=== PATIENT | male | born 1955 | race Two or more races ===

== ENCOUNTER 2017-10-22 13:47 | Emergency (ER) | END 2017-10-22 14:58 | disposition home or self-care (01) ==

== ENCOUNTER 2018-10-11 21:10 | Inpatient (IN) | payer MEDICARE, BC ==
[~2018-10-11] VITALS: Ht 180.3 cm; Wt 88.7 kg
[~2018-10-11 21:10] MED LIST: AMIO200T4 PO; APIX5TAB PO; ASPI-781 PO; ATOR40TA68 PO; BUPR150T6 PO; CARV6.2579 PO; CHOL100062 PO; CLOP75TA19 PO; FAMO20TA18 PO; QUIN20TA23 PO; SPIR25TA PO
[2018-10-11] MEDS ORDERED: CARV12.579 PO (21:59)
[2018-10-11] MEDS ORDERED: CLOP75TA19 PO (21:59)
[2018-10-11] MEDS ORDERED: SACU1TAB4 PO (21:59)
[2018-10-11] MEDS ORDERED: LEVO50TA7 PO (22:00)
[2018-10-11] MEDS ORDERED: APIX5TAB PO (22:00)
[2018-10-11] MEDS ORDERED: ATOR40TA68 PO (22:00)
[2018-10-11] MEDS ORDERED: SPIR25TA PO (22:01)
[2018-10-11] MEDS ORDERED: AMIO200T4 PO (22:01)
[2018-10-11] MEDS ORDERED: OMEP40CA6 PO (22:02)
[2018-10-11] MEDS ORDERED: FAMO20TA18 PO (22:02)
[2018-10-11] MEDS ORDERED: SOD CHLORIDE 0.9% 500 ML IV STA (22:03)
[2018-10-11] MEDS ORDERED: ONDANSETRON 4 MG INJ IV STA (22:03)
--- NOTE | 2018-10-11 22:37 | ERD ---
ER Documentation Chief Complaint Chief Complaint witnessed apneaic episode w/ colorchange- resolved upon ems arival ARELIS This is a 63-year-old male with a history of hypertension, CAD, CHF with a pacemaker presents to the ER for evaluation of chest pain and syncope. The patient's history is obtained from the patient and his . The patient's states that the patient has been feeling sick over the past few days and today he was feeling very weak and he fainted. The patient did not hit his head because of caught him. His states that he started to turn blue and she called 911. She states that the patient was unconscious for approximately 60 seconds. The patient states that he was feeling weak and felt like he was going to faint before this happened. He states that he is having some chest pain and states that it is a light pain in the center of his chest ROS All systems reviewed and are negative except as per history of present illness. Medications Home Meds Reported Medications Famotidine* (Famotidine*) 20 Mg Tablet, 20 MG PO BID, #60 TAB 10/11/18 Omeprazole* (Omeprazole*) 40 Mg Capsule.dr, 40 MG PO DAILY, #30 CAP 10/11/18 Spironolactone* (Aldactone*) 25 Mg Tablet, 25 MG PO DAILY, #30 TAB 10/11/18 Amiodarone Hcl* (Amiodarone Hcl*) 200 Mg Tablet, 200 MG PO DAILY, #30 TAB 10/11/18 Apixaban* (Eliquis*) 5 Mg Tablet, 5 MG PO BID, TAB 10/11/18 Atorvastatin* (Atorvastatin*) 40 Mg Tablet, 40 MG PO QHS, #30 TAB 10/11/18 Levothyroxine Sodium* (Levothyroxine Sodium*) 50 Mcg Tablet, 50 MCG PO BEFORE BREAKFAST, #30 TAB 10/11/18 Clopidogrel Bisulfate* (Clopidogrel Bisulfate*) 75 Mg Tablet, 75 MG PO DAILY, #30 TAB 10/11/18 Carvedilol* (Carvedilol*) 12.5 Mg Tablet, 12.5 MG PO BID, #60 TAB 10/11/18 Sacubitril/Valsartan (Entresto 97 mg-103 mg Tablet) 1 Each Tablet, 1 EACH PO BID, TAB 10/11/18 Discontinued Reported Medications Spironolactone* (Aldactone*) 25 Mg Tablet, 25 MG PO DAILY, #30 TAB 06/16/16 Amiodarone Hcl* (Amiodarone Hcl*) 200 Mg Tablet, 200 MG PO DAILY, #30 TAB 06/16/16 Atorvastatin* (Atorvastatin*) 40 Mg Tablet, 40 MG PO QHS, #30 TAB 06/16/16 Quinapril Hcl (Quinapril Hcl) 20 Mg Tablet, 20 MG PO DAILY, #30 TAB 06/16/16 Clopidogrel Bisulfate* (Clopidogrel Bisulfate*) 75 Mg Tablet, 75 MG PO DAILY, #30 TAB 06/16/16 Bupropion Hcl* (Bupropion XL*) 150 Mg Tab.er.24h, 150 MG PO BID, TAB.SA 06/16/16 Apixaban* (Eliquis*) 5 Mg Tablet, 5 MG PO BID, TAB 06/16/16 Aspirin* (Ecotrin*) 325 Mg Tablet.dr, 325 MG PO DAILY, TAB 06/16/16 Famotidine* (Famotidine*) 20 Mg Tablet, 20 MG PO BID, #60 TAB 06/16/16 Cholecalciferol* (Vitamin D3*) 1,000 Unit Tablet, 1000 UNIT PO DAILY, TAB 06/16/16 Discontinued Scripts Carvedilol* (Carvedilol*) 6.25 Mg Tablet, 6.25 MG PO BID for 30 Days, #60 TAB Prov:ASHWINI WYLIE M.D. 06/18/16 Allergies Allergies: Coded Allergies: Penicillins (Verified Allergy, Mild, 10/11/18) PMhx/Soc History of Surgery: Yes (INTERNAL DEFRIBILLATOR PLACEMENT) Anesthesia Reaction: No Hx Neurological Disorder: No Hx Respiratory Disorders: No Hx Cardiac Disorders: Yes (VT) Hx Psychiatric Problems: No Hx Miscellaneous Medical Probl: No Hx Alcohol Use: No Hx Substance Use: No Hx Tobacco Use: No Smoking Status: Never smoker Physical Exam Vitals Vital Signs Date Temp Pulse Resp B/P (MAP) Pulse Ox O2 O2 Flow FiO2 Time Delivery Rate 10/11/18 98.7 75 30 125/87 95 Nasal 2.0 21:20 (100) Cannula 10/11/18 98.7 74 20 125/87 97 21:18 (100) Physical Exam INITIAL VITAL SIGNS: Reviewed by me GENERAL: The patient is well developed and appropriate for usual state of health in no apparent distress HEENT: Dry mucous membranes, pupils equal, round, and reactive to light. EOMI. There is no scleral icterus. NECK: C-spine is soft and supple, there is no meningismus. There is no cervical lymphadenopathy. LUNGS: Clear to auscultation bilaterally. There are no rales, wheezes or rhonchi. HEART: Regular rate and rhythm, no murmurs, clicks, rubs or gallops. ABDOMEN: Soft, non-tender, non-distended. There are bowel sounds in all four quadrants. No rebound or guarding. EXTREMITIES: There is no peripheral cyanosis or edema. No focal swelling or erythema. NEUROLOGICAL: The patient moves all four extremities with 5/5 strength. Cranial nerves II - XII are intact. Normal gait. Alert and oriented SKIN: There is no apparent rash or petechiae. HEME/LYMPHATIC: There is no evidence of excessive bruising or lymphedema. PSYCHIATRIC: The patient does not appear anxious or depressed. Result Diagram: 10/11/18213410/11/182134 Results 24 hrs Laboratory Tests Test 10/11/18 21:30 10/11/18 21:35 Bedside Glucose 117 mg/dL White Blood Count 9.6 10^3/ul Red Blood Count 3.77 10^6/ul Hemoglobin 12.0 g/dl Hematocrit 37.1 % Mean Corpuscular Volume 98.4 fl Mean Corpuscular Hemoglobin 31.8 pg Mean Corpuscular Hemoglobin Concent 32.3 g/dl Red Cell Distribution Width 14.6 % Platelet Count 206 10^3/UL Mean Platelet Volume 12.0 fl Immature Granulocytes % 0.400 % Neutrophils % 75.5 % Lymphocytes % 12.6 % Monocytes % 10.3 % Eosinophils % 0.8 % Basophils % 0.4 % Nucleated Red Blood Cells % 0.0 /100WBC Immature Granulocytes # 0.040 10^3/ul Neutrophils # 7.3 10^3/ul Lymphocytes # 1.2 10^3/ul Monocytes # 1.0 10^3/ul Eosinophils # 0.1 10^3/ul Basophils # 0.0 10^3/ul Nucleated Red Blood Cells # 0.0 10^3/ul Sodium Level 139 mmol/L Potassium Level 3.7 mmol/L Chloride Level 102 mmol/L Carbon Dioxide Level 27 mmol/L Anion Gap 10 Blood Urea Nitrogen 23 mg/dl Creatinine 1.51 mg/dl Est Glomerular Filtrat Rate mL/min 47 mL/min Glucose Level 138 mg/dl Calcium Level 9.3 mg/dl Total Bilirubin 1.6 mg/dl Direct Bilirubin 0.00 mg/dl Indirect Bilirubin 1.6 mg/dl Aspartate Amino Transf (AST/SGOT) 16 IU/L Alanine Aminotransferase (ALT/SGPT) 13 IU/L Alkaline Phosphatase 60 IU/L Troponin I 0.017 ng/ml Total Protein 7.8 g/dl Albumin 4.2 g/dl Globulin 3.60 g/dl Albumin/Globulin Ratio 1.16 Lipase 75 U/L Current Medications Medications Dose Sig/Zahira Start Time Status Last (Trade) Ordered Route PRN Stop Time Admin Dose Reason Admin Sodium 500 ml @ Q1H STAT 10/11/18 10/11/18 Chloride 500 mls/hr IV 22:03 22:24 10/11/18 23:02 Ondansetron 4 mg ONCE STAT 10/11/18 DC HCl (Zofran IV 22:03 Inj) 10/11/18 22:04 Ondansetron 4 mg ER BRIDGE 10/11/18 HCl (Zofran PRN IV 23:00 Inj) NAUSEA/VOMITI 10/12/18 22:59 NG 650 mg ER BRIDGE 10/11/18 Acetaminophen PRN PO 23:00 (Tylenol .MILD PAIN 10/12/18 22:59 Tab) 1-3 OR TEMP Procedures/MDM Chest X-ray 1V Interpreted by me: Soft Tissue: No acute abnormalities Bones: No acute abnormalities Mediastinum/Cardiac Silhouette/Lungs: Pulmonary vascular congestion EKG: Rate/Rhythm: Normal sinus rhythm with first-degree AV block QRS, ST, T-waves: [No changes consistent w/ acute ischemia] Impression: [No evidence of ischemia or arrhythmia] This 63-year-old male presents to the ER for evaluation of syncope and chest pain. The patient does have a significant cardiac history of CAD, hypertension, and CHF with pacemaker placement. On my exam the patient did have dry mucous membranes however he is alert and oriented to person place and time. The pat ient had no significant signs of trauma to the head. He was answering questions appropriately. Patient's EKG is nonischemic and chest x-ray shows pulmonary vascular congestion. Given his age and risk factors the patient will be placed in for admission at this time. The patient will be admitted to panel physician and will be placed on the telemetry floor Departure Diagnosis: Primary Impression: Syncope Additional Impressions: Chest pain Dehydration Condition: Fair SONDRA REYNA DO Oct 11, 2018 22:37
[2018-10-11] MEDS ORDERED: ACETAMINOPHEN 325 MG TAB PO PRN (23:00)
[2018-10-11] MEDS ORDERED: ONDANSETRON 4 MG INJ IV PRN (23:00)
--- NOTE | 2018-10-11 23:58 | HP ---
Date/Time of Note Date/Time of Note DATE: 10/11/18 TIME: 23:58 Assessment/Plan VTE Prophylaxis Pharmacological prophylaxis: apixaban Lines/Catheters IV Catheter Type (from Nrsg): Saline Lock Assessment/Plan Assessment/Plan 1. Chest pain: Rule out ACS -Continue telemetry monitoring -Supplemental oxygen, dual antiplatelet, statin, BB and ACEI. As needed nitro -Trend troponin -EKG with NSR with first-degree block -2D echo and cardiology consult 2. Syncope -Telemetry monitoring -Cardiac workup as above -Cardiology consult -?AICD interrogation(last was in 2015, reportedly normal) -Check orthostatics -Carotid Doppler ultrasound -Will consider head CT 3. History of CAD: See #1 4. Ischemic cardiomyopathy with EF of 25-30% in 2016 -Continue cardiac meds 5. AICD: Last interrogation in 2015, reportedly normal 6. CKD: Monitor kidney function closely 7. History of cardiac arrest, 22 years ago Result Diagram: 10/11/18213410/11/182134 Results 24hrs Laboratory Tests Test 10/11/18 21:30 10/11/18 21:35 10/11/18 23:00 Bedside Glucose 117 White Blood Count 9.6 # Red Blood Count 3.77 L Hemoglobin 12.0 L Hematocrit 37.1 L Mean Corpuscular Volume 98.4 Mean Corpuscular Hemoglobin 31.8 Mean Corpuscular Hemoglobin Concent 32.3 Red Cell Distribution Width 14.6 H Platelet Count 206 Mean Platelet Volume 12.0 #H Immature Granulocytes % 0.400 Neutrophils % 75.5 Lymphocytes % 12.6 L Monocytes % 10.3 Eosinophils % 0.8 Basophils % 0.4 Nucleated Red Blood Cells % 0.0 Immature Granulocytes # 0.040 H Neutrophils # 7.3 Lymphocytes # 1.2 Monocytes # 1.0 H Eosinophils # 0.1 Basophils # 0.0 Nucleated Red Blood Cells # 0.0 Sodium Level 139 Potassium Level 3.7 Chloride Level 102 Carbon Dioxide Level 27 Anion Gap 10 Blood Urea Nitrogen 23 H Creatinine 1.51 H Est Glomerular Filtrat Rate mL/min 47 L Glucose Level 138 Calcium Level 9.3 Total Bilirubin 1.6 H Direct Bilirubin 0.00 Indirect Bilirubin 1.6 H Aspartate Amino Transf (AST/SGOT) 16 Alanine Aminotransferase (ALT/SGPT) 13 Alkaline Phosphatase 60 Troponin I 0.017 Total Protein 7.8 Albumin 4.2 Globulin 3.60 H Albumin/Globulin Ratio 1.16 Lipase 75 Urine Color REEMA Urine Clarity CLOUDY A Urine pH 5.0 Urine Specific [place] 1.026 Urine Ketones NEGATIVE Urine Nitrite NEGATIVE Urine Bilirubin NEGATIVE Urine Urobilinogen 2+ H Urine Leukocyte Esterase NEGATIVE Urine Microscopic RBC 1 Urine Microscopic WBC 1 Urine Bacteria FEW A Urine Mucus MANY A Urine Hemoglobin 1+ H Urine Glucose NEGATIVE Urine Total Protein 1+ H HPI/ROS Admit Date/Time Admit Date/Time Hx of Present Illness This is a 63-year-old male with a history of hypertension, hypothyroidism, CAD, ischemic cardiomyopathy with EF of 25-30% in 2016, CKD, AICD, cardiac arrest over 20 years ago, small infarct (2016 CT brain) who presented to ER complaining of chest pain and fainting. He reported that he has been feeling weak. He had a loss of consciousness and fell. His caught him before he hit his head. Patient was last admitted here in 2016 for syncope. At that time it was reported that his AICD fired 3 months prior. It was interrogated with normal finding. When he presented to the ER, vitals were stable. First troponin negative. EKG shows NSR with first-degree block. Chest x-ray shows moderate to marked cardiomegaly. PMH/Family/Social Past Medical History Medical History: other (See HPI) Medications Current Medications Ondansetron HCl (Zofran Inj) 4 mg ER BRIDGE PRN IV NAUSEA/VOMITING; Start 10/11/18 at 23:00; Stop 10/12/18 at 22:59 Acetaminophen (Tylenol Tab) 650 mg ER BRIDGE PRN PO .MILD PAIN 1-3 OR TEMP; Start 10/11/18 at 23:00; Stop 10/12/18 at 22:59 Coded Allergies: Penicillins (Verified Allergy, Mild, 10/11/18) Past Surgical History Past Surgical Hx: other (AICD) Family History Significant Family History: no pertinent family hx Social History Alcohol Use: none Smoking Status: Never smoker Drug Use: none Exam/Review of Systems Vital Signs Vitals Vital Signs Date Temp Pulse Resp B/P (MAP) Pulse Ox O2 O2 Flow FiO2 Time Delivery Rate 10/11/18 66 18 111/71 99 Nasal 2.0 23:26 (84) Cannula 10/11/18 98.7 21:20 Exam Constitutional: other (No acute distress) Head: normocephalic, atraumatic Eyes: EOMI, PERRL Respiratory: clear to auscultation Cardiovascular: regular rate and rhythm Gastrointestinal: soft Extremities: normal pulses NICOLE SEALS MD Oct 11, 2018 23:58
[2018-10-12] VITALS (12 sets, daily range): BP systolic 95–111; BP diastolic 54–72; PULSE 60–99; RESP 18–21; Ht 180.3 cm; Wt 88.7 kg
[2018-10-12] MEDS ORDERED: NITROGLYCERIN (SL) 0.4 MG TAB SL PRN
[2018-10-12] MEDS ORDERED: HYDROCODONE/APAP (5/325) TAB PO PRN
[2018-10-12] MEDS ORDERED: ONDANSETRON 4 MG INJ IV PRN
[2018-10-12] MEDS ORDERED: NACL 0.9% 3 ML SYG IV SCH
[2018-10-12] MEDS ORDERED: ACETAMINOPHEN 325 MG TAB PO PRN
[2018-10-12] MEDS ORDERED: ALBUTEROL/IPRATROPIUM (NEB) 3 ML AMP HHN PRN
[2018-10-12] MEDS: LEVOTHYROXINE 50 MCG TAB PO SCH (06:09)
[2018-10-12] MEDS: PANTOPRAZOLE (EC) 40 MG TAB PO SCH (06:09)
[2018-10-12] MEDS: APIXABAN 5 MG TABLET PO SCH ×2 (08:49→20:17)
[2018-10-12] MEDS: CLOPIDOGREL 75 MG TAB PO SCH (08:49)
[2018-10-12] MEDS: FAMOTIDINE 20 MG TAB PO SCH ×2 (08:50→20:17)
[2018-10-12] MEDS: SPIRONOLACTONE 25 MG TAB PO SCH (08:50)
[2018-10-12] MEDS: AMIODARONE 200 MG TAB PO SCH (08:50)
[2018-10-12] MEDS ORDERED: NON-FORMULARY/PATIENT OWN MED (Omeprazole* 40 MG) PO SCH (09:00)
--- NOTE | 2018-10-12 15:33 | RADRPT ---
Echocardiogram Report Patient Name: CHANA CUETOPatient ID: [id number] : 1955 (63y 7m)Study Date: 10/12/2018 7:50:00 AM Gender: MAccession #: [id number] Tech: Lenny Hebert [facility] Location: [id number] Ref.Physician: NICOLE SEALS Height(Cm): BSA: Weight(Kg): Quality: AdequateOrder Physician: NICOLE SEALS Account #: Procedures: Echocardiographic Report: Transthoracic echocardiogram with complete 2D, M-Mode, and doppler examination. Indications: Chest Pain. Measurements: 2D/M Mode Doppler Measurement Value Normal Range Measurement Value Normal Range LVIDd 2D 5.9 [ 4.2 - 5.8 ] cm AV Peak Kofi 1.4 [ 100.0 - 170.0 ] cm/se c LVIDs 2D 5.0 [ 2.5 - 4.0 ] cm AV Peak PG 7.0 [ 2.0 - 9.0 ] mmHg LVPWd 2D 1.2 [ 0.6 - 1.0 ] cm LVOT Peak Kofi 0.8 [ 70.0 - 110.0 ] cm/sec IVSd 2D 1.1 [ 0.6 - 1.0 ] cm LVOT Peak PG 3.0 [ 2.0 - 6.0 ] mmHg AoR Diam 2D 2.9 [ 2.6 - 3.4 ] cm MV E Peak Kofi 1.0 [ 60.0 - 130.0 ] cm/sec EDV 2D 176.0 [ 62.0 - 150.0 ] ml MV A Peak Kofi 0.3 [ 100.0 - 120.0 ] cm/se c ESV 2D 117.0 [ 21.0 - 61.0 ] ml MV E/A 3.2 [ 0.8 - 1.5 ] ratio EF 2D 33.5 [ 52.0 - 72.0 ] percent MV PHT 51.0 [ 20.0 - 100.0 ] msec LA Dimen 2D 4.8 [ 3.0 - 4.0 ] cm MV Decel Time 173 [ 104 - 258 ] msec MV Decel [place] 6 Lat E` Kofi 0.1 [ 10.0 - 15.0 ] cm/sec Lateral E/E` 11.8 [ 1.0 - 2.0 ] ratio Med E` Kofi 0.1 cm/sec MV E/A 3.2 [ 0.8 - 1.5 ] ratio MVA PHT 4.3 [ 2.0 - 4.0 ] cm2 Findings: Left Ventricle: Normal left ventricular wall thickness. Mild enlargement of left ventricle cavity. Severe global left ventricular systolic dysfunction. Ejection fraction is visually estimated at 25-30 %. Tissue Doppler/Mitral Doppler indices are consistent with pseudonormalization with mildly elevated left atrial pressure (Stage II diastolic dysfunction). These segments of the LV are hypokinetic inferolateral base, inferolateral mid segment and anterolateral mid segment. Right Ventricle: Normal right ventricular size. Normal right ventricular systolic function. Left Atrium: There is mild enlargement of left atrium. Right Atrium: The right atrium is normal in size. Pacemaker wire seen in Right heart. Atrial Septum: Normal atrial septum. Ventricular septum: Normal/intact ventricular septum. Mitral Valve: Normal appearance of the mitral valve. Mild to moderate mitral valve regurgitation. Aortic Valve: Normal appearance of the aortic valve. No aortic regurgitation. Tricuspid Valve: Normal appearance of the tricuspid valve. There is trace tricuspid regurgitation. Pulmonic Valve: Normal pulmonic valve appearance. No evidence of pulmonic regurgitation. Pericardium: Small to moderate pericardial effusion. Aorta: Normal aortic root. IVC: Normal size and normal respiratory collapse consistent with normal right atrial pressure. Conclusions: Severe global left ventricular systolic dysfunction. Ejection fraction is visually estimated at 25-30 %. Tissue Doppler/Mitral Doppler indices are consistent with pseudonormalization with mildly elevated left atrial pressure (Stage II diastolic dysfunction). These segments of the LV are hypokinetic inferolateral base, inferolateral mid segment and anterolateral mid segment. Normal appearance of the mitral valve. Mild to moderate mitral valve regurgitation. Small to moderate pericardial effusion. Electronically Signed By: Abhi Richardson 2018-10-12 15:33:17 PDT
--- NOTE | 2018-10-12 18:12 | PN ---
Date/Time of Note Date/Time of Note DATE: 10/12/18 TIME: 18:09 Assessment/Plan VTE Prophylaxis Risk score (from Ns)>0 risk: 2 SCD applied (from Ns): No SCD contraindicated: low risk/ambulating Pharmacological prophylaxis: LMWH Lines/Catheters IV Catheter Type (from [facility]): Saline Lock Urinary Cath still in place: No Assessment/Plan Hospital Course Assessment and plan 1. Syncope likely orthostatics, rule out arrhythmia stable check continue fluids 2. Recent bronchitis? 3. He chronic kidney disease 4. Hypovolemia 5. Constipation 6. Nonadherence? . Chronic coronary disease PCI back in May or February AICD status, I believe checked 3 months ago History of stroke History of cardiopulmonary arrest Chronic hypertension Chronic hypothyroidism First-degree AV block Anemia likely asymptomatic Subjective recent cough loss of appetite possible ill contacts. No travel. Fever. Did not get his flu shot Objective: First-degree AV block low blood pressure Physical exam No pallor droop adenopathy Regular no murmur gallop Mostly clear no tachypnea at rest Benign No edema Result Diagram: 10/12/18 0520 10/12/18 0520 Results 24hrs Laboratory Tests Test 10/11/18 21:30 10/11/18 21:35 10/11/18 23:00 10/12/18 00:42 Bedside Glucose 117 White Blood Count 9.6 # Red Blood Count 3.77 L Hemoglobin 12.0 L Hematocrit 37.1 L Mean Corpuscular 98.4 Volume Mean Corpuscular 31.8 Hemoglobin Mean Corpuscular 32.3 Hemoglobin Concent Red Cell 14.6 H Distribution Width Platelet Count 206 Mean Platelet Volume 12.0 #H Immature 0.400 Granulocytes % Neutrophils % 75.5 Lymphocytes % 12.6 L Monocytes % 10.3 Eosinophils % 0.8 Basophils % 0.4 Nucleated Red Blood 0.0 Cells % Immature 0.040 H Granulocytes # Neutrophils # 7.3 Lymphocytes # 1.2 Monocytes # 1.0 H Eosinophils # 0.1 Basophils # 0.0 Nucleated Red Blood 0.0 Cells # Sodium Level 139 Potassium Level 3.7 Chloride Level 102 Carbon Dioxide Level 27 Anion Gap 10 Blood Urea Nitrogen 23 H Creatinine 1.51 H Est Glomerular 47 L Filtrat Rate mL/min Glucose Level 138 Calcium Level 9.3 Total Bilirubin 1.6 H Direct Bilirubin 0.00 Indirect Bilirubin 1.6 H Aspartate Amino 16 Transf (AST/SGOT) Alanine 13 Aminotransferase (AL T/SGPT) Alkaline Phosphatase 60 Troponin I 0.017 0.104 Total Protein 7.8 Albumin 4.2 Globulin 3.60 H Albumin/Globulin 1.16 Ratio Lipase 75 Urine Color REEMA Urine Clarity CLOUDY A Urine pH 5.0 Urine Specific 1.026 [place] Urine Ketones NEGATIVE Urine Nitrite NEGATIVE Urine Bilirubin NEGATIVE Urine Urobilinogen 2+ H Urine Leukocyte NEGATIVE Esterase Urine Microscopic 1 RBC Urine Microscopic 1 WBC Urine Bacteria FEW A Urine Mucus MANY A Urine Hemoglobin 1+ H Urine Glucose NEGATIVE Urine Total Protein 1+ H Creatine Kinase 73 Creatine Kinase 0.7 Index Creatinine Kinase MB 0.50 (Mass) Test 10/12/18 05:20 White Blood Count 8.3 Red Blood Count 3.50 L Hemoglobin 11.2 L Hematocrit 34.5 L Mean Corpuscular 98.6 Volume Mean Corpuscular 32.0 Hemoglobin Mean Corpuscular 32.5 Hemoglobin Concent Red Cell 14.6 H Distribution Width Platelet Count 196 Mean Platelet Volume 12.2 H Immature 0.400 Granulocytes % Neutrophils % 75.2 Lymphocytes % 13.3 L Monocytes % 9.5 Eosinophils % 1.2 Basophils % 0.4 Nucleated Red Blood 0.0 Cells % Immature 0.030 Granulocytes # Neutrophils # 6.3 Lymphocytes # 1.1 Monocytes # 0.8 Eosinophils # 0.1 Basophils # 0.0 Nucleated Red Blood 0.0 Cells # Sodium Level 139 Potassium Level 4.0 Chloride Level 103 Carbon Dioxide Level 26 Anion Gap 10 Blood Urea Nitrogen 25 H Creatinine 1.37 H Est Glomerular 52 L Filtrat Rate mL/min Glucose Level 97 # Hemoglobin A1c 5.7 Calcium Level 8.9 Magnesium Level 1.9 Total Bilirubin 1.3 Direct Bilirubin 0.00 Indirect Bilirubin 1.3 H Aspartate Amino 13 L Transf (AST/SGOT) Alanine 20 Aminotransferase (AL T/SGPT) Alkaline Phosphatase 57 Creatine Kinase 69 Creatine Kinase 0.8 Index Creatinine Kinase MB 0.55 (Mass) Troponin I 0.094 Total Protein 6.5 # Albumin 3.6 Globulin 2.90 Albumin/Globulin 1.24 Ratio Triglycerides Level 62 Cholesterol Level 107 LDL Cholesterol, 58 Calculated HDL Cholesterol 37 Cholesterol/HDL 2.8 Ratio Thyroid Stimulating 4.400 Hormone (TSH) Free Thyroxine 1.60 Exam/Review of Systems Exam Vitals Vital Signs Date Temp Pulse Resp B/P (MAP) Pulse Ox O2 O2 Flow FiO2 Time Delivery Rate 10/12/18 69 16:00 10/12/18 98.0 21 109/72 96 15:40 (84) 10/12/18 Nasal 2.0 08:00 Cannula Intake and Output 10/11/18 10/11/18 10/12/18 1515:00 23:00 07:00 IntakeIntake Total 150 ml BalanceBalance 150 ml Results Results 24hrs Laboratory Tests Test 10/11/18 21:30 10/11/18 21:35 10/11/18 23:00 10/12/18 00:42 Bedside Glucose 117 White Blood Count 9.6 # Red Blood Count 3.77 L Hemoglobin 12.0 L Hematocrit 37.1 L Mean Corpuscular 98.4 Volume Mean Corpuscular 31.8 Hemoglobin Mean Corpuscular 32.3 Hemoglobin Concent Red Cell 14.6 H Distribution Width Platelet Count 206 Mean Platelet Volume 12.0 #H Immature 0.400 Granulocytes % Neutrophils % 75.5 Lymphocytes % 12.6 L Monocytes % 10.3 Eosinophils % 0.8 Basophils % 0.4 Nucleated Red Blood 0.0 Cells % Immature 0.040 H Granulocytes # Neutrophils # 7.3 Lymphocytes # 1.2 Monocytes # 1.0 H Eosinophils # 0.1 Basophils # 0.0 Nucleated Red Blood 0.0 Cells # Sodium Level 139 Potassium Level 3.7 Chloride Level 102 Carbon Dioxide Level 27 Anion Gap 10 Blood Urea Nitrogen 23 H Creatinine 1.51 H Est Glomerular 47 L Filtrat Rate mL/min Glucose Level 138 Calcium Level 9.3 Total Bilirubin 1.6 H Direct Bilirubin 0.00 Indirect Bilirubin 1.6 H Aspartate Amino 16 Transf (AST/SGOT) Alanine 13 Aminotransferase (AL T/SGPT) Alkaline Phosphatase 60 Troponin I 0.017 0.104 Total Protein 7.8 Albumin 4.2 Globulin 3.60 H Albumin/Globulin 1.16 Ratio Lipase 75 Urine Color REEMA Urine Clarity CLOUDY A Urine pH 5.0 Urine Specific 1.026 [place] Urine Ketones NEGATIVE Urine Nitrite NEGATIVE Urine Bilirubin NEGATIVE Urine Urobilinogen 2+ H Urine Leukocyte NEGATIVE Esterase Urine Microscopic 1 RBC Urine Microscopic 1 WBC Urine Bacteria FEW A Urine Mucus MANY A Urine Hemoglobin 1+ H Urine Glucose NEGATIVE Urine Total Protein 1+ H Creatine Kinase 73 Creatine Kinase 0.7 Index Creatinine Kinase MB 0.50 (Mass) Test 10/12/18 05:20 White Blood Count 8.3 Red Blood Count 3.50 L Hemoglobin 11.2 L Hematocrit 34.5 L Mean Corpuscular 98.6 Volume Mean Corpuscular 32.0 Hemoglobin Mean Corpuscular 32.5 Hemoglobin Concent Red Cell 14.6 H Distribution Width Platelet Count 196 Mean Platelet Volume 12.2 H Immature 0.400 Granulocytes % Neutrophils % 75.2 Lymphocytes % 13.3 L Monocytes % 9.5 Eosinophils % 1.2 Basophils % 0.4 Nucleated Red Blood 0.0 Cells % Immature 0.030 Granulocytes # Neutrophils # 6.3 Lymphocytes # 1.1 Monocytes # 0.8 Eosinophils # 0.1 Basophils # 0.0 Nucleated Red Blood 0.0 Cells # Sodium Level 139 Potassium Level 4.0 Chloride Level 103 Carbon Dioxide Level 26 Anion Gap 10 Blood Urea Nitrogen 25 H Creatinine 1.37 H Est Glomerular 52 L Filtrat Rate mL/min Glucose Level 97 # Hemoglobin A1c 5.7 Calcium Level 8.9 Magnesium Level 1.9 Total Bilirubin 1.3 Direct Bilirubin 0.00 Indirect Bilirubin 1.3 H Aspartate Amino 13 L Transf (AST/SGOT) Alanine 20 Aminotransferase (AL T/SGPT) Alkaline Phosphatase 57 Creatine Kinase 69 Creatine Kinase 0.8 Index Creatinine Kinase MB 0.55 (Mass) Troponin I 0.094 Total Protein 6.5 # Albumin 3.6 Globulin 2.90 Albumin/Globulin 1.24 Ratio Triglycerides Level 62 Cholesterol Level 107 LDL Cholesterol, 58 Calculated HDL Cholesterol 37 Cholesterol/HDL 2.8 Ratio Thyroid Stimulating 4.400 Hormone (TSH) Free Thyroxine 1.60 Medications Medication Current Medications IV Flush (NS 3 ml) 3 ml PER PROTOCOL IV ; Start 10/12/18 at 00:00 Ondansetron HCl (Zofran Inj) 4 mg Q6H PRN IV NAUSEA/VOMITING; Start 10/12/18 at 00:00 Nitroglycerin (Nitroglycerin (Sl Tab) 0.4 Mg) 1 tab Q5M PRN SL .CHEST PAIN; Start 10/12/18 at 00:00 Acetaminophen (Tylenol Tab) 650 mg Q6H PRN PO .PAIN 1-3 OR TEMP; Start 10/12/18 at 00:00 Acetaminophen/ Hydrocodone Bitart ([place] (5/325)) 1 tab Q6H PRN PO .PAIN 4-6; Start 10/12/18 at 00:00 Albuterol/ Ipratropium (Duoneb) 3 ml Q2H RESP THERAPY PRN HHN SHORTNESS OF BREATH; Start 10/12/18 at 00:00 Amiodarone HCl (Cordarone) 200 mg DAILY PO Last administered on 10/12/18at 08:50; Admin Dose 200 MG; Start 10/12/18 at 09:00 Apixaban (Eliquis) 5 mg BID PO Last administered on 10/12/18at 08:49; Admin Dose 5 MG; Start 10/12/18 at 09:00 Atorvastatin Calcium (Lipitor) 40 mg QHS PO ; Start 10/12/18 at 21:00 Carvedilol (Coreg) 12.5 mg BID PO Last administered on 10/12/18at 08:50; Admin Dose 12.5 MG; Start 10/12/18 at 09:00 Clopidogrel Bisulfate (plaVIX) 75 mg DAILY PO Last administered on 10/12/18at 08:49; Admin Dose 75 MG; Start 10/12/18 at 09:00 Famotidine (Pepcid) 20 mg BID PO Last administered on 10/12/18at 08:50; Admin Dose 20 MG; Start 10/12/18 at 09:00 Levothyroxine Sodium (Synthroid) 50 mcg BEFORE BREAKFAST PO Last administered on 10/12/18at 06:09; Admin Dose 50 MCG; Start 10/12/18 at 07:00 Spironolactone (Aldactone) 25 mg DAILY PO ; Start 10/12/18 at 09:00 Miscellaneous Information 1 each BID PO ; Start 10/12/18 at 09:00; Status UNV Pantoprazole (Protonix Tab) 40 mg DAILY@06 PO Last administered on 10/12/18at 06:09; Admin Dose 40 MG; Start 10/12/18 at 06:00 MAVIS ARCEO MD Oct 12, 2018 18:12
[2018-10-12] MEDS ORDERED: SOD CHLORIDE 0.9% 250 ML IV ONE (18:30)
[2018-10-12] MEDS ORDERED: LACTULOSE 30ML CUP PO PRN (18:30)
[2018-10-12] MEDS: SENNA/DOCUSATE NA (8.6MG/50MG) TAB PO SCH (20:17)
[2018-10-12] MEDS ORDERED: ATORVASTATIN 40 MG TAB PO SCH (21:00)
[2018-10-13] VITALS (8 sets, daily range): BP systolic 97–127; BP diastolic 52–72; PULSE 62–83; RESP 18–20
[2018-10-13] MEDS: PANTOPRAZOLE (EC) 40 MG TAB PO SCH (05:57)
[2018-10-13] MEDS: LEVOTHYROXINE 50 MCG TAB PO SCH (07:09)
[2018-10-13] MEDS: SENNA/DOCUSATE NA (8.6MG/50MG) TAB PO SCH ×2 (08:16→21:16)
[2018-10-13] MEDS: CLOPIDOGREL 75 MG TAB PO SCH (08:16)
[2018-10-13] MEDS: FAMOTIDINE 20 MG TAB PO SCH ×2 (08:16→21:16)
[2018-10-13] MEDS: SPIRONOLACTONE 25 MG TAB PO SCH (08:17)
[2018-10-13] MEDS: APIXABAN 5 MG TABLET PO SCH ×2 (08:18→21:15)
[2018-10-13] MEDS: AMIODARONE 200 MG TAB PO SCH (08:18)
[2018-10-13] MEDS ORDERED: CEPASTAT LOZENGE MT PRN (11:30)
[2018-10-13] MEDS: GUAIFENESIN/DM 5ML CUP PO PRN ×2 (12:45→21:45)
[2018-10-13] MEDS: SACUBITRIL/VALSARTAN (49mg-51mg) TABLET PO SCH ×2 (12:46→21:16)
[2018-10-13] MEDS: AZITHROMYCIN 250 MG TAB PO SCH (13:04)
--- NOTE | 2018-10-13 18:34 | PN ---
Date/Time of Note Date/Time of Note DATE: 10/13/18 TIME: 18:31 Assessment/Plan VTE Prophylaxis Risk score (from Ns)>0 risk: 2 SCD applied (from [facility] [place]): No SCD contraindicated: low risk/ambulating Pharmacological prophylaxis: LMWH Lines/Catheters IV [facility]from [facility] Saline Lock Urinary Cath still in place: No Assessment/Plan Hospital Course Assessment and plan 1. Syncope, likely orthostatics, rule out arrhythmia. stable continue management for bronchitis 2. Recent bronchitis? 3. Insufficiency/ Ckd presently at baseline 4. Hypovolemia 5. Constipation 6. Nonadherence? 7. Chronic cad, PCI back in May or February 8. AICD status, I believe checked 3 months ago 9. History of stroke 10. History of cardiopulmonary arrest 11. Chronic hypertension 12.. Chronic hypothyroidism 13. First-degree AV block 14. Anemia likely asymptomatic 15. Pericardial effusion. I spoke with cardiology. This is minimal, no evidence of tamponade on. Subjective 10/12 recent cough loss of appetite possible ill contacts. No travel. Fever. Did not get his flu shot 10/13 Positive BM. Additional dyspnea low-grade fever remains. still has not had any appetite. O: First-degree AV block. lowish bp- probably at baseline Physical exam No pallor. JVD? Reg no m/r/g Mostly clear no tachypnea at rest Benign No edema Result Diagram: 10/13/18 0527 10/13/18 0527 Results 24hrs Laboratory Tests Test 10/13/18 05:27 White Blood Count 9.1 Red Blood Count 3.46 L Hemoglobin 10.9 L Hematocrit 33.5 L Mean Corpuscular Volume 96.8 Mean Corpuscular Hemoglobin 31.5 Mean Corpuscular Hemoglobin Concent 32.5 Red Cell Distribution Width 14.7 H Platelet Count 195 Mean Platelet Volume 12.8 H Immature Granulocytes % 0.400 Neutrophils % 82.5 H Lymphocytes % 6.8 L Monocytes % 8.5 Eosinophils % 1.1 Basophils % 0.7 Nucleated Red Blood Cells % 0.0 Immature Granulocytes # 0.040 H Neutrophils # 7.5 Lymphocytes # 0.6 L Monocytes # 0.8 Eosinophils # 0.1 Basophils # 0.1 Nucleated Red Blood Cells # 0.0 Prothrombin Time 19.3 H Prothrombin Time Ratio 1.5 INR International Normalized Ratio 1.62 Sodium Level 140 Potassium Level 3.9 Chloride Level 105 Carbon Dioxide Level 23 Anion Gap 12 Blood Urea Nitrogen 24 H Creatinine 1.29 H Est Glomerular Filtrat Rate mL/min 56 L Glucose Level 99 Calcium Level 8.8 Phosphorus Level 3.3 Magnesium Level 2.0 Thyroid Stimulating Hormone (TSH) 7.100 H Exam/Review of Systems Exam Vitals Vital Signs Date Temp Pulse Resp B/P (MAP) Pulse Ox O2 O2 Flow FiO2 Time Delivery Rate 10/13/18 2.0 18:25 10/13/18 99.6 76 19 127/66 93 16:08 (86) 10/13/18 Nasal 07:46 Cannula Intake and Output 10/12/18 10/12/18 10/13/18 1515:00 23:00 07:00 IntakeIntake Total 1000 ml BalanceBalance 1000 ml Results Results 24hrs Laboratory Tests Test 10/13/18 05:27 White Blood Count 9.1 Red Blood Count 3.46 L Hemoglobin 10.9 L Hematocrit 33.5 L Mean Corpuscular Volume 96.8 Mean Corpuscular Hemoglobin 31.5 Mean Corpuscular Hemoglobin Concent 32.5 Red Cell Distribution Width 14.7 H Platelet Count 195 Mean Platelet Volume 12.8 H Immature Granulocytes % 0.400 Neutrophils % 82.5 H Lymphocytes % 6.8 L Monocytes % 8.5 Eosinophils % 1.1 Basophils % 0.7 Nucleated Red Blood Cells % 0.0 Immature Granulocytes # 0.040 H Neutrophils # 7.5 Lymphocytes # 0.6 L Monocytes # 0.8 Eosinophils # 0.1 Basophils # 0.1 Nucleated Red Blood Cells # 0.0 Prothrombin Time 19.3 H Prothrombin Time Ratio 1.5 INR International Normalized Ratio 1.62 Sodium Level 140 Potassium Level 3.9 Chloride Level 105 Carbon Dioxide Level 23 Anion Gap 12 Blood Urea Nitrogen 24 H Creatinine 1.29 H Est Glomerular Filtrat Rate mL/min 56 L Glucose Level 99 Calcium Level 8.8 Phosphorus Level 3.3 Magnesium Level 2.0 Thyroid Stimulating Hormone (TSH) 7.100 H Medications Medication Current Medications IV Flush (NS 3 ml) 3 ml PER PROTOCOL IV ; Start 10/12/18 at 00:00 Ondansetron HCl (Zofran Inj) 4 mg Q6H PRN IV NAUSEA/VOMITING; Start 10/12/18 at 00:00 Nitroglycerin (Nitroglycerin (Sl Tab) 0.4 Mg) 1 tab Q5M PRN SL .CHEST PAIN; Start 10/12/18 at 00:00 Acetaminophen (Tylenol Tab) 650 mg Q6H PRN PO .PAIN 1-3 OR TEMP Last administered on 10/12/18 20:18; Admin Dose 650 MG; Start 10/12/18 at 00:00 Acetaminophen/ Hydrocodone Bitart ([place] (5/325)) 1 tab Q6H PRN PO .PAIN 4-6; Start 10/12/18 at 00:00 Albuterol/ Ipratropium (Duoneb) 3 ml Q2H RESP THERAPY PRN HHN SHORTNESS OF BREATH; Start 10/12/18 at 00:00 Amiodarone HCl (Cordarone) 200 mg DAILY PO Last administered on 10/13/18 08:18; Admin Dose 200 MG; Start 10/12/18 at 09:00 Apixaban (Eliquis) 5 mg BID PO Last administered on 10/13/18 08:18; Admin Dose 5 MG; Start 10/12/18 at 09:00 Atorvastatin Calcium (Lipitor) 40 mg QHS PO Last administered on 10/12/18 20:17; Admin Dose 40 MG; Start 10/12/18 at 21:00 Carvedilol (Coreg) 12.5 mg BID PO Last administered on 10/12/18 20:17; Admin Dose 12.5 MG; Start 10/12/18 at 09:00 Clopidogrel Bisulfate (plaVIX) 75 mg DAILY PO Last administered on 10/13/18 08:16; Admin Dose 75 MG; Start 10/12/18 at 09:00 Famotidine (Pepcid) 20 mg BID PO Last administered on 10/13/18 08:16; Admin Dose 20 MG; Start 10/12/18 at 09:00 Levothyroxine Sodium (Synthroid) 50 mcg BEFORE BREAKFAST PO Last administered on 10/13/18 07:09; Admin Dose 50 MCG; Start 10/12/18 at 07:00 Spironolactone (Aldactone) 25 mg DAILY PO Last administered on 10/13/18 08:17; Admin Dose 25 MG; Start 10/12/18 at 09:00 Sacubitril/ Valsartan (Entresto 49 Mg-51 Mg) 2 tab BID PO Last administered on 10/13/18 12:46; Admin Dose 2 TAB; Start 10/13/18 at 11:00 Pantoprazole (Protonix Tab) 40 mg DAILY@06 PO Last administered on 10/13/18 05:57; Admin Dose 40 MG; Start 10/12/18 at 06:00 Senna/Docusate Sodium (Senokot-S) 2 tab BID PO Last administered on 10/13/18 08:16; Admin Dose 2 TAB; Start 10/12/18 at 21:00 Lactulose (Enulose) 20 gm BID PRN PO CONSTIPATION; Start 10/12/18 at 18:30; Stop 10/13/18 at 23:00 Azithromycin (Zithromax) 250 mg DAILY PO Last administered on 10/13/18 13:04; Admin Dose 250 MG; Start 10/13/18 at 11:30 Guaifenesin/ Dextromethorphan (Robitussin Dm Liquid Cup) 10 ml Q4H PRN PO COUGH Last administered on 10/13/18 12:45; Admin Dose 10 ML; Start 10/13/18 at 11:30 Phenol (Cepastat Lozenge) 1 lozenge Q1H PRN MT SORE THROAT Last administered on 10/13/18 12:45; Admin Dose 1 LOZENGE; Start 10/13/18 at 11:30 MAVIS ARCEO MD Oct 13, 2018 18:34
[2018-10-14] VITALS (12 sets, daily range): BP systolic 94–120; BP diastolic 51–71; PULSE 63–79; RESP 18–19
[2018-10-14] MEDS: SENNA/DOCUSATE NA (8.6MG/50MG) TAB PO SCH ×2 (09:00→21:00)
[2018-10-14] MEDS: AZITHROMYCIN 250 MG TAB PO SCH (09:34)
[2018-10-14] MEDS: FAMOTIDINE 20 MG TAB PO SCH ×2 (09:35→21:34)
[2018-10-14] MEDS: CLOPIDOGREL 75 MG TAB PO SCH (09:36)
[2018-10-14] MEDS: SPIRONOLACTONE 25 MG TAB PO SCH (09:37)
[2018-10-14] MEDS: APIXABAN 5 MG TABLET PO SCH ×2 (09:37→21:35)
[2018-10-14] MEDS: SACUBITRIL/VALSARTAN (49mg-51mg) TABLET PO SCH ×2 (09:37→21:35)
[2018-10-14] MEDS: AMIODARONE 200 MG TAB PO SCH (09:37)
--- NOTE | 2018-10-14 15:25 | PN ---
Date/Time of Note Date/Time of Note DATE: 10/14/18 TIME: 15:24 Assessment/Plan VTE Prophylaxis Risk score (from Ns)>0 risk: 3 SCD applied (from Ns): No SCD contraindicated: other Pharmacological prophylaxis: apixaban Lines/Catheters IV [facility] (from [facility] Saline Lock Urinary Cath still in place: No Assessment/Plan Hospital Course SUBJECTIVE: Denies any chest pain. Complains of productive cough. Poor appetite. OBJECTIVE: Physical Exam General: Adequately build 63 year-old male lying in bed in no apparent distress. HEENT: Normocephalic, atraumatic. Eyes: Anicteric sclerae, conjunctivae clear. ENT: Nasal septum midline, oral mucosa moist. Neck supple, no JVD noticed. Respiratory: Bilaterally diminished breath sounds. No use of accessory muscles of respiration. No adventitious breath sounds. Cardiovascular: S1, S2 heard. Regular rate and rhythm. Abdomen: Soft, nontender, and nondistended. Bowel sounds positive in all 4 q uadrants. Genitourinary: Deferred. Extremities: No cyanosis, no clubbing, no edema. Peripheral pulses palpable. Neurologic: Cranial nerves II through XII grossly intact. The patient is awake, alert, and oriented. Skin: Normal skin turgor. No skin rashes. Labs & Vitals per chart ASSESSMENT & PLAN 63-year-old male with comorbidities including CAD, status post coronary artery stenting, ischemic cardiomyopathy, AICD placement, CKD, history of cardiac arrest, hypertension, and hypothyroidism. The patient came to the emergency room after the patient's witnessed apneic episode with color change and resolved upon EMS arrival. The patient has been feeling sick for the past few days. The patient was admitted to inpatient setting for further treatment and evaluation. 1. Syncope. -Most probably from a vasovagal response. -Carotid Doppler negative. -Blood pressure slightly on the lower side (decrease beta-marshall dosage). 2. Ischemic cardiomyopathy. -Ejection fraction of 25-30%. -Continue beta-blockers, Entresto, and aldosterone antagonist. -Patient appears euvolemic upon clinical exam. 3. History of cardiac arrest. -Status post AICD placement. -Continue amiodarone. 4. CAD. -Status post coronary artery stenting. -Continue antiplatelet therapy. -Continue statins. 5. Upper respiratory infection. -Continue Zithromax. -Send rapid strep, sputum culture, and influenza A and B. 6. Chronic kidney disease. -Monitor BUN and creatinine closely. -Obtain nephrology consult. 7. Normocytic anemia. -Most probably anemia chronic kidney disease -Monitor H&H closely. 8. Hypothyroidism -Continue Synthroid. 9. Fluids, electrolytes, and nutrition. -Low-cholesterol diet. 10. DVT prophylaxis -Factor Xa inhibitors. 11. Plan. -Continue telemetry monitoring. -Obtain cardiology consult. -Await clinical improvement. The patient was seen in collaboration with Dr. Amor. Plan of care was explained to the patient's family, who was at the bedside. Result Diagram: 10/14/18 0506 10/14/18 0506 Results 24hrs Laboratory Tests Test 10/14/18 05:06 White Blood Count 9.1 Red Blood Count 3.45 L Hemoglobin 10.9 L Hematocrit 33.4 L Mean Corpuscular Volume 96.8 Mean Corpuscular Hemoglobin 31.6 Mean Corpuscular Hemoglobin Concent 32.6 Red Cell Distribution Width 14.6 H Platelet Count 196 Mean Platelet Volume 12.5 H Immature Granulocytes % 0.500 H Neutrophils % 76.4 Lymphocytes % 12.1 L Monocytes % 9.7 Eosinophils % 0.9 Basophils % 0.4 Nucleated Red Blood Cells % 0.0 Immature Granulocytes # 0.050 H Neutrophils # 7.0 Lymphocytes # 1.1 Monocytes # 0.9 Eosinophils # 0.1 Basophils # 0.0 Nucleated Red Blood Cells # 0.0 Sodium Level 143 Potassium Level 3.7 Chloride Level 102 Carbon Dioxide Level 26 Anion Gap 15 H Blood Urea Nitrogen 20 Creatinine 1.29 H Est Glomerular Filtrat Rate mL/min 56 L Glucose Level 91 Calcium Level 8.8 Magnesium Level 2.1 Total Bilirubin 1.0 Direct Bilirubin 0.00 Indirect Bilirubin 1.0 Aspartate Amino Transf (AST/SGOT) 22 # Alanine Aminotransferase (ALT/SGPT) 14 Alkaline Phosphatase 64 Total Protein 7.2 Albumin 3.7 Globulin 3.50 H Albumin/Globulin Ratio 1.05 Exam/Review of Systems Exam Vitals Vital Signs Date Temp Pulse Resp B/P (MAP) Pulse Ox O2 O2 Flow FiO2 Time Delivery Rate 10/14/18 68 12:07 10/14/18 98.9 19 113/71 92 11:14 (85) 10/13/18 Nasal 2.0 21:00 Cannula Intake and Output 10/13/18 10/13/18 10/14/18 1515:00 23:00 07:00 IntakeIntake Total 800 ml 800 ml BalanceBalance 800 ml 800 ml Results Results 24hrs Laboratory Tests Test 10/14/18 05:06 White Blood Count 9.1 Red Blood Count 3.45 L Hemoglobin 10.9 L Hematocrit 33.4 L Mean Corpuscular Volume 96.8 Mean Corpuscular Hemoglobin 31.6 Mean Corpuscular Hemoglobin Concent 32.6 Red Cell Distribution Width 14.6 H Platelet Count 196 Mean Platelet Volume 12.5 H Immature Granulocytes % 0.500 H Neutrophils % 76.4 Lymphocytes % 12.1 L Monocytes % 9.7 Eosinophils % 0.9 Basophils % 0.4 Nucleated Red Blood Cells % 0.0 Immature Granulocytes # 0.050 H Neutrophils # 7.0 Lymphocytes # 1.1 Monocytes # 0.9 Eosinophils # 0.1 Basophils # 0.0 Nucleated Red Blood Cells # 0.0 Sodium Level 143 Potassium Level 3.7 Chloride Level 102 Carbon Dioxide Level 26 Anion Gap 15 H Blood Urea Nitrogen 20 Creatinine 1.29 H Est Glomerular Filtrat Rate mL/min 56 L Glucose Level 91 Calcium Level 8.8 Magnesium Level 2.1 Total Bilirubin 1.0 Direct Bilirubin 0.00 Indirect Bilirubin 1.0 Aspartate Amino Transf (AST/SGOT) 22 # Alanine Aminotransferase (ALT/SGPT) 14 Alkaline Phosphatase 64 Total Protein 7.2 Albumin 3.7 Globulin 3.50 H Albumin/Globulin Ratio 1.05 Medications Medication Current Medications IV Flush (NS 3 ml) 3 ml PER PROTOCOL IV ; Start 10/12/18 at 00:00 Ondansetron HCl (Zofran Inj) 4 mg Q6H PRN IV NAUSEA/VOMITING; Start 10/12/18 at 00:00 Nitroglycerin (Nitroglycerin (Sl Tab) 0.4 Mg) 1 tab Q5M PRN SL .CHEST PAIN; Start 10/12/18 at 00:00 Acetaminophen (Tylenol Tab) 650 mg Q6H PRN PO .PAIN 1-3 OR TEMP Last administered on 10/12/18at 20:18; Admin Dose 650 MG; Start 10/12/18 at 00:00 Acetaminophen/ Hydrocodone Bitart ([place] (5/325)) 1 tab Q6H PRN PO .PAIN 4-6; Start 10/12/18 at 00:00 Albuterol/ Ipratropium (Duoneb) 3 ml Q2H RESP THERAPY PRN HHN SHORTNESS OF BREATH; Start 10/12/18 at 00:00 Amiodarone HCl (Cordarone) 200 mg DAILY PO Last administered on 10/14/18 09:37; Admin Dose 200 MG; Start 10/12/18 at 09:00 Apixaban (Eliquis) 5 mg BID PO Last administered on 10/14/18 09:37; Admin Dose 5 MG; Start 10/12/18 at 09:00 Clopidogrel Bisulfate (plaVIX) 75 mg DAILY PO Last administered on 10/14/18 09:36; Admin Dose 75 MG; Start 10/12/18 at 09:00 Famotidine (Pepcid) 20 mg BID PO Last administered on 10/14/18 09:35; Admin Dose 20 MG; Start 10/12/18 at 09:00 Spironolactone (Aldactone) 25 mg DAILY PO Last administered on 10/14/18 09:37; Admin Dose 25 MG; Start 10/12/18 at 09:00 Sacubitril/ Valsartan (Entresto 49 Mg-51 Mg) 2 tab BID PO Last administered on 10/14/18 09:37; Admin Dose 2 TAB; Start 10/13/18 at 11:00 Senna/Docusate Sodium (Senokot-S) 2 tab BID PO Last administered on 10/13/18 21:16; Admin Dose 2 TAB; Start 10/12/18 at 21:00 Azithromycin (Zithromax) 250 mg DAILY PO Last administered on 10/14/18 09:34; Admin Dose 250 MG; Start 10/13/18 at 11:30 Guaifenesin/ Dextromethorphan (Robitussin Dm Liquid Cup) 10 ml Q4H PRN PO COUGH Last administered on 10/13/18 21:45; Admin Dose 10 ML; Start 10/13/18 at 11:30 Phenol (Cepastat Lozenge) 1 lozenge Q1H PRN MT SORE THROAT Last administered on 10/13/18 12:45; Admin Dose 1 LOZENGE; Start 10/13/18 at 11:30 Atorvastatin Calcium (Lipitor) 40 mg QHS PO ; Start 10/15/18 at 21:00 Levothyroxine Sodium (Synthroid) 50 mcg BEFORE BREAKFAST PO ; Start 10/15/18 at 07:00 Carvedilol (Coreg) 6.25 mg BID PO ; Start 10/14/18 at 21:00; Status UNV CHERRI RAMOS NP Oct 14, 2018 15:25
--- NOTE | 2018-10-14 18:28 | CONS ---
DATE OF ADMISSION: 10/11/2018 DATE OF CONSULTATION: 10/14/2018 TYPE OF CONSULTATION: Nephrology. REASON FOR CONSULTATION: Acute kidney injury, possible CKD. PHYSICIAN REQUESTING CONSULT: William Albarado NP HISTORY OF PRESENT ILLNESS: This is a 63-year-old male with a past medical history of cardiomyopathy with ejection fraction 25% to 30%, history of hypertension, history of coronary artery disease, hypo thyroidism, history of arrhythmia, status post ICD placement, history of cardiac arrest, history of C VA, history of CKD with previous baseline creatinine around 1.3 mg/dL, who presents to [facility] Emergency Room feeling weak. The patient reported having a loss of consciousness and fall. The patient was admitted previously in 2016 for syncope. Upon admission here in the emergency room, the patient had stable vitals and EKG shows normal sinus rhythm with 1st degree AV block. Tro ponin is negative. Chest x-ray showed cardiomegaly. The patient in the emergency room was stabilize d and admitted to telemetry. The patient was also started on empiric antibiotic therapy. In terms of patient's renal history, the patient had history of chronic kidney disease with previous baseline creatinine around 1.2 to 1.5 mg/dL. On admission, the patient had a creatinine of 1.5 mg/dL , which has increased to 1.29 mg/dL. The patient reports having adequate urinary output. Denies any hemoptysis, hematemesis or hematochezia. PAST MEDICAL HISTORY: History of CKD, history of cardiomyopathy, history of coronary artery disease, history of hypertension, history of hypothyroidism, previous history of CVA. PAST SURGICAL HISTORY: Status post AICD placement. FAMILY HISTORY: No family history of kidney disease. SOCIAL HISTORY: Does not drink, smoke or do drugs. MEDICATIONS: Have been reviewed. REVIEW OF SYSTEMS: A 14-point review of systems was conducted. Pertinent positives as stated in the HPI, otherwise negative. PHYSICAL EXAMINATION: VITAL SIGNS: Blood pressure is 94/51, respirations 19, pulse , temperature 99.2. HEENT: Head is normocephalic. NECK: Supple. HEART: Regular rate. LUNGS: Show diminished breath sounds at base. ABDOMEN: Soft, nontender to palpation without rebound or guarding. EXTREMITIES: Negative for clubbing, cyanosis. No edema. DERMATOLOGIC: No rashes. MUSCULOSKELETAL: No joint effusion. NEUROLOGIC: No change in exam. LABORATORY DATA: Show sodium 143, potassium 3.7, chloride 102, BUN 20, creatinine 1.29. Urinalysis was reviewed. CBC was reviewed. DIAGNOSTIC DATA: Chest x-ray was reviewed. ASSESSMENT AND PLAN: This is a 63-year-old male who presents with: 1. Nonoliguric acute kidney injury on top of chronic kidney disease with previous baseline creatinin e around 1.2 to 1.3 mg/dL. Etiology of current acute kidney injury is possibly secondary to hemodyna mics, ARB effect. The patient's renal function has improved with supportive care. The patient's uri nalysis was reviewed. It was bland, no active sediment. At this point, plan will be to quantify the patient's proteinuria. We would consider checking renal ultrasound to evaluate renal parenchyma. W e would otherwise continue current treatment plan, continue supportive care, renally dose all meds. Continue current medical management. Continue ARB. We would monitor blood pressure closely to avoid hypotension to ensure adequate renal perfusion. 2. Anemia. Monitor hemoglobin and hematocrit levels. 3. Mineral bone disorder. Monitor calcium and phosphorus levels. 4. Syncope. Etiology is unclear, possibly vasovagal. The patient is stable on telemetry. Continue to monitor. 5. Ischemic cardiomyopathy. The patient's ejection fraction is 25%. The patient appears euvolemic on exam. A 2D echo was reviewed. Continue medical management. 6. History of cardiac arrest. The patient has an ICD placement. Continue current treatment plan. 7. History of coronary artery disease. Continue current medical management. 8. Upper respiratory infection. Continue Zithromax. 9. Hypothyroidism. Continue Synthroid. Thank you, William, for this interesting consult. It will be a pleasure to follow the patient with yo u throughout the hospital course. Dictated By: ARTI CURRY DO NR/NTS Conf#: [id number] DID#: [id number] CC: MAVIS ARCEO MD; LIOR RAMOS MD; NICOLE SEALS MD;*EndCC*
[2018-10-15] VITALS (12 sets, daily range): BP systolic 93–110; BP diastolic 54–64; PULSE 63–70; RESP 18–21
[2018-10-15] MEDS: LEVOTHYROXINE 50 MCG TAB PO SCH (06:15)
[2018-10-15] MEDS: GUAIFENESIN/DM 5ML CUP PO PRN (06:15)
[2018-10-15] MEDS: SENNA/DOCUSATE NA (8.6MG/50MG) TAB PO SCH ×3 (08:40→21:40)
[2018-10-15] MEDS: AMIODARONE 200 MG TAB PO SCH (08:43)
[2018-10-15] MEDS: SACUBITRIL/VALSARTAN (49mg-51mg) TABLET PO SCH ×2 (08:44→21:39)
[2018-10-15] MEDS: APIXABAN 5 MG TABLET PO SCH ×2 (08:44→21:39)
[2018-10-15] MEDS: FAMOTIDINE 20 MG TAB PO SCH ×2 (08:44→21:39)
[2018-10-15] MEDS: AZITHROMYCIN 250 MG TAB PO SCH (08:44)
[2018-10-15] MEDS: SPIRONOLACTONE 25 MG TAB PO SCH (08:44)
[2018-10-15] MEDS: CLOPIDOGREL 75 MG TAB PO SCH (08:44)
--- NOTE | 2018-10-15 09:16 | CONS ---
Consultation Date/Type/Reason Admit Date/Time Type of Consult Cardiology Date/Time of Note DATE: 10/15/18 TIME: 09:15 Hx of Present Illness 63 yo with HTN,CAD. CRF, ICD - prior h/o Cardiac Arrest - now with syncope - need to check ICD - will put in an order to do so - full note dictated # [id number] Past Medical History Home Meds Reported Medications Famotidine* (Famotidine*) 20 Mg Tablet, 20 MG PO BID, #60 TAB 10/11/18 Omeprazole* (Omeprazole*) 40 Mg Capsule.dr, 40 MG PO DAILY, #30 CAP 10/11/18 Spironolactone* (Aldactone*) 25 Mg Tablet, 25 MG PO DAILY, #30 TAB 10/11/18 Amiodarone Hcl* (Amiodarone Hcl*) 200 Mg Tablet, 200 MG PO DAILY, #30 TAB 10/11/18 Apixaban* (Eliquis*) 5 Mg Tablet, 5 MG PO BID, TAB 10/11/18 Atorvastatin* (Atorvastatin*) 40 Mg Tablet, 40 MG PO QHS, #30 TAB 10/11/18 Levothyroxine Sodium* (Levothyroxine Sodium*) 50 Mcg Tablet, 50 MCG PO BEFORE BREAKFAST, #30 TAB 10/11/18 Clopidogrel Bisulfate* (Clopidogrel Bisulfate*) 75 Mg Tablet, 75 MG PO DAILY, #30 TAB 10/11/18 Carvedilol* (Carvedilol*) 12.5 Mg Tablet, 12.5 MG PO BID, #60 TAB 10/11/18 Sacubitril/Valsartan (Entresto 97 mg-103 mg Tablet) 1 Each Tablet, 1 EACH PO BID, TAB 10/11/18 Discontinued Reported Medications Spironolactone* (Aldactone*) 25 Mg Tablet, 25 MG PO DAILY, #30 TAB 06/16/16 Amiodarone Hcl* (Amiodarone Hcl*) 200 Mg Tablet, 200 MG PO DAILY, #30 TAB 06/16/16 Atorvastatin* (Atorvastatin*) 40 Mg Tablet, 40 MG PO QHS, #30 TAB 06/16/16 Quinapril Hcl (Quinapril Hcl) 20 Mg Tablet, 20 MG PO DAILY, #30 TAB 06/16/16 Clopidogrel Bisulfate* (Clopidogrel Bisulfate*) 75 Mg Tablet, 75 MG PO DAILY, #30 TAB 06/16/16 Bupropion Hcl* (Bupropion XL*) 150 Mg Tab.er.24h, 150 MG PO BID, TAB.SA 06/16/16 Apixaban* (Eliquis*) 5 Mg Tablet, 5 MG PO BID, TAB 06/16/16 Aspirin* (Ecotrin*) 325 Mg Tablet.dr, 325 MG PO DAILY, TAB 06/16/16 Famotidine* (Famotidine*) 20 Mg Tablet, 20 MG PO BID, #60 TAB 06/16/16 Cholecalciferol* (Vitamin D3*) 1,000 Unit Tablet, 1000 UNIT PO DAILY, TAB 06/16/16 Discontinued Scripts Carvedilol* (Carvedilol*) 6.25 Mg Tablet, 6.25 MG PO BID for 30 Days, #60 TAB Prov:ASHWINI WYLIE M.D. 06/18/16 Medications Current Medications IV Flush (NS 3 ml) 3 ml PER PROTOCOL IV ; Start 10/12/18 at 00:00 Ondansetron HCl (Zofran Inj) 4 mg Q6H PRN IV NAUSEA/VOMITING; Start 10/12/18 at 00:00 Nitroglycerin (Nitroglycerin (Sl Tab) 0.4 Mg) 1 tab Q5M PRN SL .CHEST PAIN; Start 10/12/18 at 00:00 Acetaminophen (Tylenol Tab) 650 mg Q6H PRN PO .PAIN 1-3 OR TEMP Last administered on 10/12/18at 20:18; Admin Dose 650 MG; Start 10/12/18 at 00:00 Acetaminophen/ Hydrocodone Bitart ([place] (5/325)) 1 tab Q6H PRN PO .PAIN 4-6; Start 10/12/18 at 00:00 Albuterol/ Ipratropium (Duoneb) 3 ml Q2H RESP THERAPY PRN HHN SHORTNESS OF BREATH; Start 10/12/18 at 00:00 Amiodarone HCl (Cordarone) 200 mg DAILY PO Last administered on 10/15/18at 08:43; Admin Dose 200 MG; Start 10/12/18 at 09:00 Apixaban (Eliquis) 5 mg BID PO Last administered on 10/15/18at 08:44; Admin Dose 5 MG; Start 10/12/18 at 09:00 Clopidogrel Bisulfate (plaVIX) 75 mg DAILY PO Last administered on 10/15/18 08:44; Admin Dose 75 MG; Start 10/12/18 at 09:00 Famotidine (Pepcid) 20 mg BID PO Last administered on 10/15/18 08:44; Admin Dose 20 MG; Start 10/12/18 at 09:00 Spironolactone (Aldactone) 25 mg DAILY PO Last administered on 10/15/18 08:44; Admin Dose 25 MG; Start 10/12/18 at 09:00 Sacubitril/ Valsartan (Entresto 49 Mg-51 Mg) 2 tab BID PO Last administered on 10/15/18 08:44; Admin Dose 2 TAB; Start 10/13/18 at 11:00 Senna/Docusate Sodium (Senokot-S) 2 tab BID PO Last administered on 10/15/18 08:44; Admin Dose 2 TAB; Start 10/12/18 at 21:00 Azithromycin (Zithromax) 250 mg DAILY PO Last administered on 10/15/18 08:44; Admin Dose 250 MG; Start 10/13/18 at 11:30 Guaifenesin/ Dextromethorphan (Robitussin Dm Liquid Cup) 10 ml Q4H PRN PO COUGH Last administered on 10/15/18 06:15; Admin Dose 10 ML; Start 10/13/18 at 11:30 Phenol (Cepastat Lozenge) 1 lozenge Q1H PRN MT SORE THROAT Last administered on 10/13/18 12:45; Admin Dose 1 LOZENGE; Start 10/13/18 at 11:30 Atorvastatin Calcium (Lipitor) 40 mg QHS PO ; Start 10/15/18 at 21:00 Levothyroxine Sodium (Synthroid) 50 mcg BEFORE BREAKFAST PO Last administered on 10/15/18 06:15; Admin Dose 50 MCG; Start 10/15/18 at 07:00 Carvedilol (Coreg) 6.25 mg BID PO Last administered on 10/15/18 08:44; Admin Dose 6.25 MG; Start 10/14/18 at 21:00 Allergies: Coded Allergies: Penicillins (Verified Allergy, Mild, 10/11/18) Past Surgical History Past Surgical Hx: other (AICD) Social History Alcohol Use: none Smoking Status: Current some day smoker Drug Use: none Exam/Review of Systems Vital Signs Vitals Vital Signs Date Temp Pulse Resp B/P (MAP) Pulse Ox O2 O2 Flow FiO2 Time Delivery Rate 10/15/18 70 08:12 10/15/18 99.3 20 101/56 95 07:29 (71) 10/13/18 Nasal 2.0 21:00 Cannula Intake and Output 10/14/18 10/14/18 10/15/18 1515:00 23:00 07:00 IntakeIntake Total 1000 ml 700 ml BalanceBalance 1000 ml 700 ml Labs Result Diagram: 10/15/18 0519 10/15/18 0531 Results 24hrs Laboratory Tests Test 10/14/18 19:30 10/15/18 05:19 10/15/18 05:31 Urine Color REEMA Urine Clarity SLIGHTLY CLOUDY A Urine pH 5.0 Urine Specific [place] 1.029 Urine Ketones NEGATIVE Urine Nitrite NEGATIVE Urine Bilirubin NEGATIVE Urine Urobilinogen 1+ H Urine Leukocyte Esterase NEGATIVE Urine Microscopic RBC 4 Urine Microscopic WBC 2 Urine Bacteria FEW A Urine Mucus MANY A Urine Hemoglobin 1+ H Urine Random Creatinine 535.25 H Urine Random Sodium < 13 L Urine Glucose NEGATIVE Urine Total Protein 27.0 H White Blood Count 8.8 Red Blood Count 3.63 L Hemoglobin 11.2 L Hematocrit 35.0 L Mean Corpuscular Volume 96.4 Mean Corpuscular Hemoglobin 30.9 Mean Corpuscular 32.0 Hemoglobin Concent Red Cell Distribution Width 14.9 H Platelet Count 206 Mean Platelet Volume 12.5 H Immature Granulocytes % 0.500 H Neutrophils % 77.6 H Lymphocytes % 11.2 L Monocytes % 8.7 Eosinophils % 1.4 Basophils % 0.6 Nucleated Red Blood Cells % 0.0 Immature Granulocytes # 0.040 H Neutrophils # 6.8 Lymphocytes # 1.0 Monocytes # 0.8 Eosinophils # 0.1 Basophils # 0.1 Nucleated Red Blood Cells # 0.0 Sodium Level 140 Potassium Level 3.9 Chloride Level 105 Carbon Dioxide Level 25 Anion Gap 10 # Blood Urea Nitrogen 23 H Creatinine 1.33 H Est Glomerular Filtrat 54 L Rate mL/min Glucose Level 104 Calcium Level 9.1 Phosphorus Level 4.1 Magnesium Level 2.2 Medications Medications Current Medications IV Flush (NS 3 ml) 3 ml PER PROTOCOL IV ; Start 10/12/18 at 00:00 Ondansetron HCl (Zofran Inj) 4 mg Q6H PRN IV NAUSEA/VOMITING; Start 10/12/18 at 00:00 Nitroglycerin (Nitroglycerin (Sl Tab) 0.4 Mg) 1 tab Q5M PRN SL .CHEST PAIN; Start 10/12/18 at 00:00 Acetaminophen (Tylenol Tab) 650 mg Q6H PRN PO .PAIN 1-3 OR TEMP Last admin istered on 10/12/18 20:18; Admin Dose 650 MG; Start 10/12/18 at 00:00 Acetaminophen/ Hydrocodone Bitart ([place] (5/325)) 1 tab Q6H PRN PO .PAIN 4-6; Start 10/12/18 at 00:00 Albuterol/ Ipratropium (Duoneb) 3 ml Q2H RESP THERAPY PRN HHN SHORTNESS OF BREATH; Start 10/12/18 at 00:00 Amiodarone HCl (Cordarone) 200 mg DAILY PO Last administered on 10/15/18 08:43; Admin Dose 200 MG; Start 10/12/18 at 09:00 Apixaban (Eliquis) 5 mg BID PO Last administered on 10/15/18 08:44; Admin Dose 5 MG; Start 10/12/18 at 09:00 Clopidogrel Bisulfate (plaVIX) 75 mg DAILY PO Last administered on 10/15/18 08:44; Admin Dose 75 MG; Start 10/12/18 at 09:00 Famotidine (Pepcid) 20 mg BID PO Last administered on 10/15/18 08:44; Admin Dose 20 MG; Start 10/12/18 at 09:00 Spironolactone (Aldactone) 25 mg DAILY PO Last administered on 10/15/18 08:44; Admin Dose 25 MG; Start 10/12/18 at 09:00 Sacubitril/ Valsartan (Entresto 49 Mg-51 Mg) 2 tab BID PO Last administered on 10/15/18 08:44; Admin Dose 2 TAB; Start 10/13/18 at 11:00 Senna/Docusate Sodium (Senokot-S) 2 tab BID PO Last administered on 10/15/18 08:44; Admin Dose 2 TAB; Start 10/12/18 at 21:00 Azithromycin (Zithromax) 250 mg DAILY PO Last administered on 10/15/18 08:44; Admin Dose 250 MG; Start 10/13/18 at 11:30 Guaifenesin/ Dextromethorphan (Robitussin Dm Liquid Cup) 10 ml Q4H PRN PO COUGH Last administered on 10/15/18 06:15; Admin Dose 10 ML; Start 10/13/18 at 11:30 Phenol (Cepastat Lozenge) 1 lozenge Q1H PRN MT SORE THROAT Last administered on 10/13/18 12:45; Admin Dose 1 LOZENGE; Start 10/13/18 at 11:30 Atorvastatin Calcium (Lipitor) 40 mg QHS PO ; Start 10/15/18 at 21:00 Levothyroxine Sodium (Synthroid) 50 mcg BEFORE BREAKFAST PO Last administered on 10/15/18 06:15; Admin Dose 50 MCG; Start 10/15/18 at 07:00 Carvedilol (Coreg) 6.25 mg BID PO Last administered on 10/15/18 08:44; Admin Dose 6.25 MG; Start 10/14/18 at 21:00 ALBA MOORE MD Oct 15, 2018 09:16
--- NOTE | 2018-10-15 09:17 | PN ---
DATE: 10/15/2018 SUBJECTIVE: The patient is stable, no events overnight. OBJECTIVE: VITAL SIGNS: Blood pressure is 101/56, pulse 70, respirations 20, temperature 99.3. HEENT: Head is normocephalic. NECK: Supple. HEART: Regular rate. LUNGS: Show diminished breath sounds at the base. ABDOMEN: Soft, nontender to palpation without rebound or guarding. EXTREMITIES: Negative for clubbing, cyanosis, no edema. DERMATOLOGIC: No rashes. MUSCULOSKELETAL: No joint effusion. NEUROLOGIC: No change in exam. MEDICATIONS: Reviewed. LABORATORY DATA: Reviewed. The patient's urinalysis shows FENa less than 1%. IMAGING STUDY: Renal ultrasound revealed normal kidneys, no evidence of obstruction. ASSESSMENT AND PLAN: 1. Nonoliguric acute kidney injury on top of chronic kidney disease with previous baseline creatinin e of 1.2 to 1.3 mg/dL. Etiology of acute kidney injury is likely secondary to hemodynamics, possible cardiorenal syndrome, possible volume depletion. The patient's FENa is less than 1% consistent with prerenal etiology which can be seen in volume depletion and/or cardiorenal syndrome. The patient's renal ultrasound also showed no evidence of obstruction, normal renal echogenicity. Renal function a ppears to be currently stable. At this point, we will continue treatment for care, renally dose all medicines, continue ARB. Avoid hypotensive episodes. Please note, the patient appears to be euvolem ic on exam. 2. Anemia. Monitor hemoglobin and hematocrit levels. 3. Mineral bone disorder. Monitor calcium and phosphorus levels. 4. Syncope, etiology is possibly vasovagal. We will continue to monitor. 5. Ischemic cardiomyopathy. The patient appears compensated. A 2D echo was reviewed. Continue to monitor. Agree with holding diuretic therapy. 6. History of cardiac arrest. The patient has history of ICD placement. Continue to monitor. 7. Coronary artery disease. Continue medical management. 8. Upper respiratory infection. Continue azithromycin. 9. Hypothyroidism. Continue Synthroid. Dictated By: ARTI CURRY DO NR/NTS Conf#: [id number] DID#: [id number] CC: MAVIS ARCEO MD; LIOR RAMOS MD; NICOLE SEALS MD;*EndCC*
--- NOTE | 2018-10-15 09:36 | CONS ---
DATE OF ADMISSION: 10/11/2018 DATE OF CONSULTATION: 10/15/2018 TYPE OF CONSULTATION: Cardiology. REFERRING PHYSICIAN: Dr. Seals. REASON FOR EVALUATION: Syncope. HISTORY OF PRESENT ILLNESS: The patient is a 63-year-old gentleman with history of cardiomyopathy, e jection fraction of 25% to 30%, history of coronary artery disease, hypothyroidism, prior history of ICD and cardiac arrest as well as history of CVA and renal insufficiency, comes to the hospital now f or evaluation of near syncopal episodes. The patient has not been feeling well. He had a cough and sore throat. He was seen in urgent care the day prior and he came home and then he had a near syncop al episode associated with dizziness and possible fever. I have been asked to see patient in consult ation to evaluate for cardiac cause of syncope. The patient does not appear to be hemodynamically st able at this particular point. He has a defibrillator, which should be interrogated to see if there was any tachybrady arrhythmia or there is any evidence of ICD dysfunction. Currently, the patient is not paced, but his heart rate is above the pacing threshold for now, conservative expectant patient' s primary correction warden, Dr. Coates will interrogate the pacemaker and interrogate defibrillator, rule t he patient out for acute ischemia and other than that we will await results of the interrogation repo rt. PAST MEDICAL HISTORY: History of renal insufficiency, history of cardiomyopathy, history of ICD, his tory of coronary artery disease, history of prior CVA, history of prior cardiac arrest. ALLERGIES: NO KNOWN DRUG ALLERGIES. SOCIAL HISTORY: The patient has a history of tobacco use, does not smoke anymore, does not drink or do drugs. FAMILY HISTORY: Negative for sudden cardiac or premature coronary artery disease. MEDICATIONS: Include: 1. Lipitor 40 mg p.o. once a day. 2. Synthroid 50 mg once a day. 3. Coreg 6.25 mg p.o. b.i.d. 4. Azithromycin 250 mg p.o. once a day. 5. Fentanyl. 6. Valsartan 10 mg p.o. b.i.d. 7. Entresto 49/51 mg p.o. b.i.d. 8. Amiodarone 200 mg p.o. once a day. 9. Eliquis 5 mg p.o. b.i.d. 10. Plavix 75 mg once a day. 11. Famotidine. 12. Spironolactone 25 mg a day. 13. Aspirin. 14. Nitroglycerin. REVIEW OF SYSTEMS: CONSTITUTIONAL: No fevers, no chills, no recent weight change. HEENT: No changes in vision or hearing. CARDIAC: Chest pain reported now. RESPIRATORY: No shortness of breath. GASTROINTESTINAL: No nausea, vomiting, diarrhea, constipation. GENITOURINARY: No dysuria, hematuria and, no hematuria. NEUROLOGIC: Prior history of CVA. PSYCHIATRIC: No known psychiatric illness. PHYSICAL EXAMINATION: VITAL SIGNS: Temperature is 99.3, heart rate 70, blood pressure 101/56. GENERAL: He is a well-nourished gentleman in no acute distress, alert and oriented x3, aware of his condition. HEAD: Normocephalic, atraumatic. Extraocular movements are intact. NECK: Supple. JVD 6-7 cm. There is no lymphadenopathy, no thyromegaly. HEART: Regular, soft holosystolic murmur. PMI is minimally displaced. ICD in place. Lungs site we ll healed. LUNGS: Coarse to base. ABDOMEN: Distended, bowel sounds are present. There is no hepatosplenomegaly. EXTREMITIES: No clubbing, cyanosis. 1+ edema. ECG reviewed by me shows sinus rhythm with first degree AV block. There are inferior Q-waves and poo r R-wave progression. LABORATORY DATA: White blood cell count 9.8, hemoglobin 11.2, platelets 206. INR is 1.6. Sodium 14 0, potassium 3.9, BUN is 23, creatinine 1.33. Glucose is 504. Troponin is negative at 0.094 x2. ASSESSMENT AND PLAN: 1. Possible syncope. Etiology is likely multifactorial. The most important thing is to rule out is chemia/ VT episode and then interrogate patient's defibrillator and monitor for appropriate function. The patient already ruled out for acute myocardial infarction. 2. Coronary artery disease. The patient is here for medical therapy. Continue to monitor for now. 3. Hypertension. Blood pressure well optimized. We will follow. 4. Upper respiratory infection with cough. Continue to treat the patient per primary team as indica tracy. 5. Renal insufficiency. Dr. Gill follows. Continue to avoid nephrotoxic medications. 6. History of defibrillator. It will be interrogated shortly. I would like to thank Dr. Thomas for referring this patient for my evaluation. Dictated By: ALBA MOORE MD ML/NTS Conf#: [id number] DID#: [id number] CC: MAVIS ARCEO MD; LIOR RAMOS MD; NICOLE SEALS MD;*EndCC*
--- NOTE | 2018-10-15 14:55 | PN ---
Date/Time of Note Date/Time of Note DATE: 10/15/18 TIME: 14:51 Assessment/Plan VTE Prophylaxis Risk score (from Ns)>0 risk: 3 SCD applied (from [facility] [place]): No SCD contraindicated: other Pharmacological prophylaxis: apixaban Lines/Catheters IV Catheter Type (from [facility], [place]): Saline Lock Urinary Cath still in place: No Assessment/Plan Hospital Course SUBJECTIVE: Denies any chest pain. Cough improved. Poor appetite. OBJECTIVE: Physical Exam General: Adequately build 63 year-old male lying in bed in no apparent distress. HEENT: Normocephalic, atraumatic. Eyes: Anicteric sclerae, conjunctivae clear. ENT: Nasal septum midline, oral mucosa moist. Neck supple, no JVD noticed. Respiratory: Bilaterally diminished breath sounds. No use of accessory muscles of respiration. No adventitious breath sounds. Cardiovascular: S1, S2 heard. Regular rate and rhythm. Abdomen: Soft, nontender, and nondistended. Bowel sounds positive in all 4 quadrants. Genitourinary: Deferred. Extremities: No cyanosis, no clubbing, no edema. Peripheral pulses palpable. Neurologic: Cranial nerves II through XII grossly intact. The patient is awake, alert, and oriented. Skin: Normal skin turgor. No skin rashes. Labs & Vitals per chart ASSESSMENT & PLAN 63-year-old male with comorbidities including CAD, status post coronary artery stenting, ischemic cardiomyopathy, AICD placement, CKD, history of cardiac arrest, hypertension, and hypothyroidism. The patient came to the emergency room after the patient's witnessed apneic episode with color change and resolved upon EMS arrival. The patient has been feeling sick for the past few days. The patient was admitted to inpatient setting for further treatment and evaluation. 1. Syncope. -Most probably from a vasovagal response. -Carotid Doppler negative. -Blood pressure slightly on the lower side (decrease beta-marshall dosage). 2. Ischemic cardiomyopathy. -Ejection fraction of 25-30%. -Continue beta-blockers, Entresto, and aldosterone antagonist. -Patient appears euvolemic upon clinical exam. 3. History of cardiac arrest. -Status post AICD placement. -Continue amiodarone. 4. CAD. -Status post coronary artery stenting. -Continue antiplatelet therapy. -Continue statins. 5. Upper respiratory infection. -Continue Zithromax. -Send rapid strep, sputum culture, and influenza A and B. 6. Chronic kidney disease. -Monitor BUN and creatinine closely. -Nephrology following. 7. Normocytic anemia. -Most probably anemia chronic kidney disease -Monitor H&H closely. 8. Hypothyroidism -Continue Synthroid. 9. Fluids, electrolytes, and nutrition. -Low-cholesterol diet. 10. DVT prophylaxis -Factor Xa inhibitors. 11. Plan. -Continue telemetry monitoring. -Await pacer interrogation. -Await clinical improvement. The patient was seen in collaboration with Dr. Amor. Plan of care was explained to the patient's family, who was at the bedside. Result Diagram: 10/15/1819 10/15/18 0531 Results 24hrs Laboratory Tests Test 10/14/18 19:30 10/15/18 05:19 10/15/18 05:31 Urine Color REEMA Urine Clarity SLIGHTLY CLOUDY A Urine pH 5.0 Urine Specific Bazine 1.029 Urine Ketones NEGATIVE Urine Nitrite NEGATIVE Urine Bilirubin NEGATIVE Urine Urobilinogen 1+ H Urine Leukocyte Esterase NEGATIVE Urine Microscopic RBC 4 Urine Microscopic WBC 2 Urine Bacteria FEW A Urine Mucus MANY A Urine Hemoglobin 1+ H Urine Random Creatinine 535.25 H Urine Random Sodium < 13 L Urine Glucose NEGATIVE Urine Total Protein 27.0 H White Blood Count 8.8 Red Blood Count 3.63 L Hemoglobin 11.2 L Hematocrit 35.0 L Mean Corpuscular Volume 96.4 Mean Corpuscular Hemoglobin 30.9 Mean Corpuscular 32.0 Hemoglobin Concent Red Cell Distribution Width 14.9 H Platelet Count 206 Mean Platelet Volume 12.5 H Immature Granulocytes % 0.500 H Neutrophils % 77.6 H Lymphocytes % 11.2 L Monocytes % 8.7 Eosinophils % 1.4 Basophils % 0.6 Nucleated Red Blood Cells % 0.0 Immature Granulocytes # 0.040 H Neutrophils # 6.8 Lymphocytes # 1.0 Monocytes # 0.8 Eosinophils # 0.1 Basophils # 0.1 Nucleated Red Blood Cells # 0.0 Sodium Level 140 Potassium Level 3.9 Chloride Level 105 Carbon Dioxide Level 25 Anion Gap 10 # Blood Urea Nitrogen 23 H Creatinine 1.33 H Est Glomerular Filtrat 54 L Rate mL/min Glucose Level 104 Calcium Level 9.1 Phosphorus Level 4.1 Magnesium Level 2.2 Exam/Review of Systems Exam Vitals Vital Signs Date Temp Pulse Resp B/P (MAP) Pulse Ox O2 O2 Flow FiO2 Time Delivery Rate 3/19/19 63 12:03 10/15/18 98.5 19 103/64 91 11:18 (77) 10/13/18 Nasal 2.0 21:00 Cannula Intake and Output 10/14/18 10/14/18 10/15/18 1414:59 22:59 06:59 IntakeIntake Total 1000 ml 700 ml BalanceBalance 1000 ml 700 ml Results Results 24hrs Laboratory Tests Test 10/14/18 19:30 10/15/18 05:19 10/15/18 05:31 Urine Color REEMA Urine Clarity SLIGHTLY CLOUDY A Urine pH 5.0 Urine Specific Bazine 1.029 Urine Ketones NEGATIVE Urine Nitrite NEGATIVE Urine Bilirubin NEGATIVE Urine Urobilinogen 1+ H Urine Leukocyte Esterase NEGATIVE Urine Microscopic RBC 4 Urine Microscopic WBC 2 Urine Bacteria FEW A Urine Mucus MANY A Urine Hemoglobin 1+ H Urine Random Creatinine 535.25 H Urine Random Sodium < 13 L Urine Glucose NEGATIVE Urine Total Protein 27.0 H White Blood Count 8.8 Red Blood Count 3.63 L Hemoglobin 11.2 L Hematocrit 35.0 L Mean Corpuscular Volume 96.4 Mean Corpuscular Hemoglobin 30.9 Mean Corpuscular 32.0 Hemoglobin Concent Red Cell Distribution Width 14.9 H Platelet Count 206 Mean Platelet Volume 12.5 H Immature Granulocytes % 0.500 H Neutrophils % 77.6 H Lymphocytes % 11.2 L Monocytes % 8.7 Eosinophils % 1.4 Basophils % 0.6 Nucleated Red Blood Cells % 0.0 Immature Granulocytes # 0.040 H Neutrophils # 6.8 Lymphocytes # 1.0 Monocytes # 0.8 Eosinophils # 0.1 Basophils # 0.1 Nucleated Red Blood Cells # 0.0 Sodium Level 140 Potassium Level 3.9 Chloride Level 105 Carbon Dioxide Level 25 Anion Gap 10 # Blood Urea Nitrogen 23 H Creatinine 1.33 H Est Glomerular Filtrat 54 L Rate mL/min Glucose Level 104 Calcium Level 9.1 Phosphorus Level 4.1 Magnesium Level 2.2 Medications Medication Current Medications IV Flush (NS 3 ml) 3 ml PER PROTOCOL IV ; Start 10/12/18 at 00:00 Ondansetron HCl (Zofran Inj) 4 mg Q6H PRN IV NAUSEA/VOMITING; Start 10/12/18 at 00:00 Nitroglycerin (Nitroglycerin (Sl Tab) 0.4 Mg) 1 tab Q5M PRN SL .CHEST PAIN; Start 10/12/18 at 00:00 Acetaminophen (Tylenol Tab) 650 mg Q6H PRN PO .PAIN 1-3 OR TEMP Last administered on 10/12/18 20:18; Admin Dose 650 MG; Start 10/12/18 at 00:00 Acetaminophen/ Hydrocodone Bitart ([place] (5/325)) 1 tab Q6H PRN PO .PAIN 4-6; Start 10/12/18 at 00:00 Albuterol/ Ipratropium (Duoneb) 3 ml Q2H RESP THERAPY PRN HHN SHORTNESS OF BREATH; Start 10/12/18 at 00:00 Amiodarone HCl (Cordarone) 200 mg DAILY PO Last administered on 10/15/18 08:4 3; Admin Dose 200 MG; Start 10/12/18 at 09:00 Apixaban (Eliquis) 5 mg BID PO Last administered on 10/15/18 08:44; Admin Dose 5 MG; Start 10/12/18 at 09:00 Clopidogrel Bisulfate (plaVIX) 75 mg DAILY PO Last administered on 10/15/18 08:44; Admin Dose 75 MG; Start 10/12/18 at 09:00 Famotidine (Pepcid) 20 mg BID PO Last administered on 10/15/18 08:44; Admin Dose 20 MG; Start 10/12/18 at 09:00 Spironolactone (Aldactone) 25 mg DAILY PO Last administered on 10/15/18 08:44; Admin Dose 25 MG; Start 10/12/18 at 09:00 Sacubitril/ Valsartan (Entresto 49 Mg-51 Mg) 2 tab BID PO Last administered on 10/15/18 08:44; Admin Dose 2 TAB; Start 10/13/18 at 11:00 Senna/Docusate Sodium (Senokot-S) 2 tab BID PO Last administered on 10/15/18 08:44; Admin Dose 2 TAB; Start 10/12/18 at 21:00 Azithromycin (Zithromax) 250 mg DAILY PO Last administered on 10/15/18 08:44; Admin Dose 250 MG; Start 10/13/18 at 11:30 Guaifenesin/ Dextromethorphan (Robitussin Dm Liquid Cup) 10 ml Q4H PRN PO COUGH Last administered on 10/15/18 06:15; Admin Dose 10 ML; Start 10/13/18 at 11:30 Phenol (Cepastat Lozenge) 1 lozenge Q1H PRN MT SORE THROAT Last administered on 10/13/18at 12:45; Admin Dose 1 LOZENGE; Start 10/13/18 at 11:30 Atorvastatin Calcium (Lipitor) 40 mg QHS PO ; Start 10/15/18 at 21:00 Levothyroxine Sodium (Synthroid) 50 mcg BEFORE BREAKFAST PO Last administered on 10/15/18 06:15; Admin Dose 50 MCG; Start 10/15/18 at 07:00 Carvedilol (Coreg) 6.25 mg BID PO Last administered on 10/15/18at 08:44; Admin Dose 6.25 MG; Start 10/14/18 at 21:00 CHERRI RAMOS NP Oct 15, 2018 14:55
[2018-10-15] MEDS ORDERED: ATORVASTATIN 40 MG TAB PO SCH (21:00)
[2018-10-16] VITALS (9 sets, daily range): BP systolic 94–112; BP diastolic 59–68; PULSE 60–71; RESP 18–21
[2018-10-16] MEDS: LEVOTHYROXINE 50 MCG TAB PO SCH (06:16)
[2018-10-16] MEDS: CLOPIDOGREL 75 MG TAB PO SCH (08:33)
[2018-10-16] MEDS: SACUBITRIL/VALSARTAN (49mg-51mg) TABLET PO SCH (08:33)
[2018-10-16] MEDS: FAMOTIDINE 20 MG TAB PO SCH (08:33)
[2018-10-16] MEDS: SPIRONOLACTONE 25 MG TAB PO SCH (08:33)
[2018-10-16] MEDS: AZITHROMYCIN 250 MG TAB PO SCH (08:33)
[2018-10-16] MEDS: APIXABAN 5 MG TABLET PO SCH (08:33)
[2018-10-16] MEDS: AMIODARONE 200 MG TAB PO SCH (08:34)
[2018-10-16] MEDS: SENNA/DOCUSATE NA (8.6MG/50MG) TAB PO SCH (08:36)
--- NOTE | 2018-10-16 09:32 | PN ---
DATE: 10/16/2018 SUBJECTIVE: The patient is stable, no events overnight. Pending interrogation of his automatic impl antable cardioverter-defibrillator. No other events noted. OBJECTIVE: VITAL SIGNS: Blood pressure is 112/68, respirations 20, pulse 64, temperature 98.0. HEENT: Head is normocephalic. NECK: Supple. HEART: Regular rate. LUNGS: Show diminished breath sounds at the base. ABDOMEN: Soft, nontender to palpation without rebound or guarding. EXTREMITIES: Negative for clubbing, cyanosis, no edema. DERMATOLOGIC: No rashes. MUSCULOSKELETAL: No joint effusion. NEUROLOGIC: No change in exam. MEDICATIONS: Reviewed. LABORATORY DATA: From 10/16/2018 was reviewed. ASSESSMENT AND PLAN: 1. Nonoliguric acute kidney injury on top of chronic kidney disease with previous baseline creatinin e of 1.2 to 1.3 mg/dL. Etiology of acute kidney injury is secondary to hemodynamics, questionable ca rdiorenal syndrome, possible volume depletion. The patient's urinary electrolytes were reviewed. Th e patient's renal function has been fluctuating, but overall stable. Recommendation is to continue c urrent treatment plans, supportive care, renally dose all medicines. 2. Anemia. Monitor hemoglobin and hematocrit levels. 3. Mineral bone disorder, monitor calcium and phosphorus levels. 4. Syncope, possible vasovagal event. The patient is pending interrogation of automatic implantable cardioverter-defibrillator. 5. Ischemic cardiomyopathy. The patient appears compensated. 2-D echo was reviewed. Continue to m onitor. Agree with holding diuretic therapy. 6. History of cardiac arrest, status post automatic implantable cardioverter-defibrillator. 7. Coronary artery disease. Continue medical management. 8. Respiratory infection. 9. Hypothyroidism. Continue Synthroid. Dictated By: ARTI CURRY DO NR/NTS Conf#: [id number] DID#: [id number] CC: NICOLE SEALS MD; LIOR RAMOS MD; MAVIS ARCEO MD;*EndCC*
--- NOTE | 2018-10-16 14:17 | CONS ---
Assessment/Plan Assessment/Plan Hospital Course (Demo Recall) IMP: [id number] by echo this admit 2.syncope 3.HTN 4.ICD 5.renal failure 6.? AF Recc: -Tele -serial ecg's -Contineu coreg and entresto -Continue aldactone and follow K clsoely -Follow volume status closely with additional lasix diuresis as necessary -Contniue plavix -Continue eliquis and follow for any bleeding complications Consultation Date/Type/Reason Admit Date/Time Oct 11, 2018 at 22:32 Initial Consult Date 10/15/18 Type of Consult Cardiology Reason for Consultation CHF Requesting Provider: JAKE MANCILLA MD Date/Time of Note DATE: 10/16/18 TIME: 14:12 Exam/Review of Systems Vital Signs Vitals Vital Signs Date Temp Pulse Resp B/P (MAP) Pulse Ox O2 O2 Flow FiO2 Time Delivery Rate 10/16/18 60 12:00 10/16/18 96.8 21 94/60 (71) 96 Room Air 11:32 10/13/18 2.0 21:00 Intake and Output 10/15/18 10/15/18 10/16/18 1515:00 23:00 07:00 IntakeIntake Total 600 ml BalanceBalance 600 ml Exam Exam Review of Systems: CONSTITUTIONAL: No fevers, chills. PULMONARY: sob CARDIOVASCULAR: No chest pain/palpitations GASTROINTESTINAL: No nausea/vomiting. GENITOURINARY: No hematuria/dysuria. MUSCULOSKELETAL: No myagias/arthalgias. PSYCHIATRIC: The patient denies depression. NEUROLOGIC: No weakness Constitutional: alert Psych: no complaints Head: normocephalic ENMT: mucosa pink and moist Neck: supple, jvd Respiratory: diminished breath sounds (at bases/B) Cardiovascular: regular rate and rhythm Gastrointestinal: soft, non-tender Musculoskeletal: muscle tone (normal) Extremities: edema (bilateral) Labs Result Diagram: 10/16/18 0504 10/16/18 0504 Results 24hrs Laboratory Tests Test 10/16/18 05:04 White Blood Count 7.3 Red Blood Count 3.48 L Hemoglobin 10.8 L Hematocrit 33.4 L Mean Corpuscular Volume 96.0 Mean Corpuscular Hemoglobin 31.0 Mean Corpuscular Hemoglobin Concent 32.3 Red Cell Distribution Width 15.0 H Platelet Count 227 Mean Platelet Volume 12.7 H Immature Granulocytes % 0.400 Neutrophils % 73.4 Lymphocytes % 13.4 L Monocytes % 9.0 Eosinophils % 3.0 Basophils % 0.8 Nucleated Red Blood Cells % 0.0 Immature Granulocytes # 0.030 Neutrophils # 5.4 Lymphocytes # 1.0 Monocytes # 0.7 Eosinophils # 0.2 Basophils # 0.1 Nucleated Red Blood Cells # 0.0 Sodium Level 141 Potassium Level 4.3 Chloride Level 105 Carbon Dioxide Level 25 Anion Gap 11 Blood Urea Nitrogen 25 H Creatinine 1.39 H Est Glomerular Filtrat Rate mL/min 51 L Glucose Level 106 Calcium Level 9.1 Phosphorus Level 4.3 Magnesium Level 2.3 Medications Medications Current Medications IV Flush (NS 3 ml) 3 ml PER PROTOCOL IV ; Start 10/12/18 at 00:00 Ondansetron HCl (Zofran Inj) 4 mg Q6H PRN IV NAUSEA/VOMITING; Start 10/12/18 at 00:00 Nitroglycerin (Nitroglycerin (Sl Tab) 0.4 Mg) 1 tab Q5M PRN SL .CHEST PAIN; St art 10/12/18 at 00:00 Acetaminophen (Tylenol Tab) 650 mg Q6H PRN PO .PAIN 1-3 OR TEMP Last administe red on 10/12/18at 20:18; Admin Dose 650 MG; Start 10/12/18 at 00:00 Acetaminophen/ Hydrocodone Bitart ([place] (5/325)) 1 tab Q6H PRN PO .PAIN 4-6; Start 10/12/18 at 00:00 Albuterol/ Ipratropium (Duoneb) 3 ml Q2H RESP THERAPY PRN HHN SHORTNESS OF BREATH; Start 10/12/18 at 00:00 Amiodarone HCl (Cordarone) 200 mg DAILY PO Last administered on 10/16/18at 08:34; Admin Dose 200 MG; Start 10/12/18 at 09:00 Apixaban (Eliquis) 5 mg BID PO Last administered on 10/16/18at 08:33; Admin Dose 5 MG; Start 10/12/18 at 09:00 Clopidogrel Bisulfate (plaVIX) 75 mg DAILY PO Last administered on 10/16/18at 08:33; Admin Dose 75 MG; Start 10/12/18 at 09:00 Famotidine (Pepcid) 20 mg BID PO Last administered on 10/16/18 08:33; Admin Dose 20 MG; Start 10/12/18 at 09:00 Spironolactone (Aldactone) 25 mg DAILY PO Last administered on 10/16/18 08:33; Admin Dose 25 MG; Start 10/12/18 at 09:00 Sacubitril/ Valsartan (Entresto 49 Mg-51 Mg) 2 tab BID PO Last administered on 10/16/18 08:33; Admin Dose 2 TAB; Start 10/13/18 at 11:00 Senna/Docusate Sodium (Senokot-S) 2 tab BID PO Last administered on 10/15/18 21:40; Admin Dose 1 TAB; Start 10/12/18 at 21:00 Azithromycin (Zithromax) 250 mg DAILY PO Last administered on 10/16/18 08:33; Admin Dose 250 MG; Start 10/13/18 at 11:30 Guaifenesin/ Dextromethorphan (Robitussin Dm Liquid Cup) 10 ml Q4H PRN PO COUGH Last administered on 10/15/18 06:15; Admin Dose 10 ML; Start 10/13/18 at 11:30 Phenol (Cepastat Lozenge) 1 lozenge Q1H PRN MT SORE THROAT Last administered on 10/13/18 12:45; Admin Dose 1 LOZENGE; Start 10/13/18 at 11:30 Atorvastatin Calcium (Lipitor) 40 mg QHS PO Last administered on 10/15/18 21:39; Admin Dose 40 MG; Start 10/15/18 at 21:00 Levothyroxine Sodium (Synthroid) 50 mcg BEFORE BREAKFAST PO Last administered on 10/16/18 06:16; Admin Dose 50 MCG; Start 10/15/18 at 07:00 Carvedilol (Coreg) 6.25 mg BID PO Last administered on 10/16/18 08:33; Admin Dose 6.25 MG; Start 10/14/18 at 21:00 LIOR RAMOS 20, 2019 14:17
[2018-10-16] MEDS ORDERED: AZIT250T13 PO (15:34)
[2018-10-16] MEDS ORDERED: CARV6.2579 PO (15:34)
--- NOTE | 2018-10-16 15:36 | PDOCDIS ---
Discharge Instructions CONDITION [id number] Patient Condition: [id number] Stable HOME CARE INSTRUCTIONS: [id number] Diet Instructions: [id number] Low Fat /Cholesterol FOLLOW UP/APPOINTMENTS Follow-up Plan Follow-up with your primary care physician in 1 week. OTHER ORDERS: Other Orders: 1. Resume home medications. Complete the course of antibiotics. 2. Take a low-cholesterol diet. 3. Resume activities as tolerated. 4. Follow-up with your primary care physician in 1 week. 5. Follow-up with your chef saucier as scheduled. 6. Please go to the nearest emergency room if you have any chest pain, palpitations, shortness of breath, persistent fevers, or any other unusual signs/symptoms. CHERRI RAMOS NP Oct 16, 2018 15:36
--- NOTE | 2018-10-16 15:58 | DS ---
Date/Time of Note Date/Time of Note DATE: 10/16/18 TIME: 15:54 Discharge Summary Admission/Discharge Info Admit Date/Time Oct 11, 2018 at 22:32 Discharge Date/Time Discharge Diagnosis 1. Syncope. 2. Ischemic cardiomyopathy. Ejection fraction of 25-30%. 3. History of cardiac arrest. Status post AICD placement. 4. CAD. Status post coronary artery stenting. 5. Upper respiratory infection. 6. Chronic kidney disease. 7. Normocytic anemia. 8. Hypothyroidism. Patient Condition: Stable Consults 1. Nick Shell MD, Cardiology. 2. Jaxon Clark MD, Cardiology. 3. Oliverio Gill DO, Nephrology. Procedures Carotid Doppler 1. No evidence for hemodynamically significant stenosis. 2D Echocardiogram Conclusions: Severe global left ventricular systolic dysfunction. Ejection fraction is visually estimated at 25-30 %. Tissue Doppler/Mitral Doppler indices are consistent with pseudonormalization with mildly elevated left atrial pressure (Stage II diastolic dysfunction). These segments of the LV are hypokinetic inferolateral base, inferolateral mid segment and anterolateral mid segment. Normal appearance of the mitral valve. Mild to moderate mitral valve regurgitation. Small to moderate pericardial effusion. Brain CT 1. No acute intracranial hemorrhage or acute territorial infarct. 2. Fold gliosis in the left frontal and left parietal lobe which is unchanged from prior examination may be related to old trauma or old infarct. 3. Age related atrophy and minimal small vessel ischemic change. 4. Patent cavum septum pellucidum Hx of Present Illness This is a 63-year-old male with comorbidities including CAD, status post coronary artery stenting, ischemic cardiomyopathy, AICD placement, CKD, history of cardiac arrest, hypertension, and hypothyroidism. The patient came to the emergency room after the patient's witnessed apneic episode with color change and resolved upon EMS arrival. The patient has been feeling sick for the past few days. The patient was admitted to inpatient setting for further treatment and evaluation. Hospital Course The patient's syncope was extensively evaluated. The patient's 2D echocardiogram was showing ejection fraction of 25-30%. The patient has known history of ischemic cardiomyopathy. The patient's carotid Doppler studies were negative. The patient was noticed to have slightly decreased blood pressure readings. Therefore, the patient's beta-marshall dosing was decreased. The patient's syncope could have been most probably from a vasovagal response. The patient was evaluated by cardiology. The patient's AICD was interrogated with no significant problems. The patient's brain CT scan was negative for any acute findings. The patient was noticed to have upper respiratory infection. Therefore, the patient was maintained on Zithromax. The patient's sputum culture was negative. The patient's influenza A and B screen was negative. The patient's rapid strep antigen screen was negative. The patient responded well to the antimicrobial therapy. The patient's chronic problems include ischemic cardiomyopathy. The patient was maintained on beta-blockers, Entresto, and aldosterone antagonist. The patient has a prior history of cardiac arrest. The patient has an AICD in place. The patient was maintained on amiodarone. The patient was maintained on Eliquis. Patient has history of coronary artery stenting. The patient was on Plavix along with Eliquis. The patient was continued on statins. The patient has a history of chronic kidney disease. The patient was evaluated by nephrology. The patient's BUN and creatinine remained stable throughout the hospital course. The patient has underlying hypothyroidism. The patient was maintained on Synthroid for the same. The patient had a stable, but a prolonged hospital course because of the slow improvement in the patient's clinical condition. The patient is stable to be discharged home. Discharge Instructions 1. Resume home medications. Complete the course of antibiotics. 2. Take a low-cholesterol diet. 3. Resume activities as tolerated. 4. Follow-up with your primary care physician in 1 week. 5. Follow-up with your architecture analyst as scheduled. 6. Please go to the nearest emergency room if you have any chest pain, palpitations, shortness of breath, persistent fevers, or any other unusual signs/symptoms. The patient/patient's family verbalized understanding of the discharge instructions. At this time I would like to thank all the consultants for seeing the patient and providing clinical recommendations. The patient was seen in collaboration with Dr. Amor. Home Meds Active Scripts Azithromycin* (Azithromycin*) 250 Mg Tablet, 250 MG PO DAILY, #1 TAB The patient received the rest of the dose. Prov:CHERRI RAMOS DEEP SEA DIVER 10/16/18 Carvedilol* (Carvedilol*) 6.25 Mg Tablet, 6.25 MG PO BID, #60 TAB The patient already has supplies. Prov:CHERRI RAMOS DEEP SEA DIVER 10/16/18 Reported Medications Famotidine* (Famotidine*) 20 Mg Tablet, 20 MG PO BID, #60 TAB 10/11/18 Omeprazole* (Omeprazole*) 40 Mg Capsule.dr, 40 MG PO DAILY, #30 CAP 10/11/18 Spironolactone* (Aldactone*) 25 Mg Tablet, 25 MG PO DAILY, #30 TAB 10/11/18 Amiodarone Hcl* (Amiodarone Hcl*) 200 Mg Tablet, 200 MG PO DAILY, #30 TAB 10/11/18 Apixaban* (Eliquis*) 5 Mg Tablet, 5 MG PO BID, TAB 10/11/18 Atorvastatin* (Atorvastatin*) 40 Mg Tablet, 40 MG PO QHS, #30 TAB 10/11/18 Levothyroxine Sodium* (Levothyroxine Sodium*) 50 Mcg Tablet, 50 MCG PO BEFORE BREAKFAST, #30 TAB 10/11/18 Clopidogrel Bisulfate* (Clopidogrel Bisulfate*) 75 Mg Tablet, 75 MG PO DAILY, #30 TAB 10/11/18 Sacubitril/Valsartan (Entresto 97 mg-103 mg Tablet) 1 Each Tablet, 1 EACH PO BID, TAB 10/11/18 Discontinued Reported Medications Carvedilol* (Carvedilol*) 12.5 Mg Tablet, 12.5 MG PO BID, #60 TAB 10/11/18 Spironolactone* (Aldactone*) 25 Mg Tablet, 25 MG PO DAILY, #30 TAB 06/16/16 Amiodarone Hcl* (Amiodarone Hcl*) 200 Mg Tablet, 200 MG PO DAILY, #30 TAB 06/16/16 Atorvastatin* (Atorvastatin*) 40 Mg Tablet, 40 MG PO QHS, #30 TAB 06/16/16 Quinapril Hcl (Quinapril Hcl) 20 Mg Tablet, 20 MG PO DAILY, #30 TAB 06/16/16 Clopidogrel Bisulfate* (Clopidogrel Bisulfate*) 75 Mg Tablet, 75 MG PO DAILY, #30 TAB 06/16/16 Bupropion Hcl* (Bupropion XL*) 150 Mg Tab.er.24h, 150 MG PO BID, TAB.SA 06/16/16 Apixaban* (Eliquis*) 5 Mg Tablet, 5 MG PO BID, TAB 06/16/16 Aspirin* (Ecotrin*) 325 Mg Tablet.dr, 325 MG PO DAILY, TAB 06/16/16 Famotidine* (Famotidine*) 20 Mg Tablet, 20 MG PO BID, #60 TAB 06/16/16 Cholecalciferol* (Vitamin D3*) 1,000 Unit Tablet, 1000 UNIT PO DAILY, TAB 06/16/16 Discontinued Scripts Carvedilol* (Carvedilol*) 6.25 Mg Tablet, 6.25 MG PO BID for 30 Days, #60 TAB Prov:ASHWINI WYLIE M.D. 06/18/16 Follow-up Plan Follow-up with your primary care physician in 1 week. Primary Care Provider Not On Staff Doctor Time spent on discharge: > 30 minutes Pending Labs Laboratory Tests Test 10/16/18 05:04 White Blood Count 7.3 10^3/ul (4.8-10.8) Red Blood Count 3.48 10^6/ul (4.70-6.10) Hemoglobin 10.8 g/dl (14.0-18.0) Hematocrit 33.4 % (42.0-52.0) Mean Corpuscular Volume 96.0 fl (82.0-101.0) Mean Corpuscular Hemoglobin 31.0 pg (29.0-33.0) Mean Corpuscular Hemoglobin Concent 32.3 g/dl (32.0-37.0) Red Cell Distribution Width 15.0 % (11.5-14.5) Platelet Count 227 10^3/UL (140-415) Mean Platelet Volume 12.7 fl (7.4-10.4) Immature Granulocytes % 0.400 % (0.001-0.429) Neutrophils % 73.4 % (39.0-77.0) Lymphocytes % 13.4 % (15.0-51.0) Monocytes % 9.0 % (0.0-11.0) Eosinophils % 3.0 % (0.0-7.0) Basophils % 0.8 % (0.0-2.0) Nucleated Red Blood Cells % 0.0 /100WBC (0.0-0.0) Immature Granulocytes # 0.030 10^3/ul (0.0-0.031) Neutrophils # 5.4 10^3/ul (1.6-7.5) Lymphocytes # 1.0 10^3/ul (0.8-2.9) Monocytes # 0.7 10^3/ul (0.3-0.9) Eosinophils # 0.2 10^3/ul (0.0-0.5) Basophils # 0.1 10^3/ul (0.0-0.1) Nucleated Red Blood Cells # 0.0 10^3/ul (0.0-0.0) Sodium Level 141 mmol/L (135-144) Potassium Level 4.3 mmol/L (3.5-5.1) Chloride Level 105 mmol/L (97-110) Carbon Dioxide Level 25 mmol/L (21-31) Anion Gap 11 (5-13) Blood Urea Nitrogen 25 mg/dl (7-20) Creatinine 1.39 mg/dl (0.61-1.24) Est Glomerular Filtrat Rate mL/min 51 mL/min (>60) Glucose Level 106 mg/dl (70-220) Calcium Level 9.1 mg/dl (8.4-10.2) Phosphorus Level 4.3 mg/dl (2.5-4.9) Magnesium Level 2.3 mg/dl (1.7-2.5) CHERRI RAMOS NP Oct 16, 2018 15:58
== END 2018-10-16 18:30 | disposition home or self-care (01) | DRG 312 ==
LOC: E/R 21:10 → 6WM 22:32
PROVIDERS: ADMIT Internal Medicine; ATTEND Internal Medicine
DX: R55 Syncope and collapse (principal); I24.9 Acute ischemic heart disease, unspecified; N17.9 Acute kidney failure, unspecified; I12.9 Hypertensive chronic kidney disease with stage 1 through stage 4 chronic kidney disease, or unspecified chronic kidney disease; I25.10 Atherosclerotic heart disease of native coronary artery without angina pectoris; N18.9 Chronic kidney disease, unspecified; E03.9 Hypothyroidism, unspecified; I25.5 Ischemic cardiomyopathy; J40 Bronchitis, not specified as acute or chronic; E86.1 Hypovolemia; K59.00 Constipation, unspecified; D64.9 Anemia, unspecified; I44.0 Atrioventricular block, first degree; F17.200 Nicotine dependence, unspecified, uncomplicated; I25.2 Old myocardial infarction; Z79.82 Long term (current) use of aspirin; Z79.02 Long term (current) use of antithrombotics/antiplatelets; Z95.810 Presence of automatic (implantable) cardiac defibrillator; Z86.74 Personal history of sudden cardiac arrest
CPT/HCPCS: 36415; 70450; 71045; 76775; 80048; 80053; 80061; 81001; 81003; 82043; 82550; 82553; 82962; 83036; 83690; 83735; 84100; 84155; 84300; 84439; 84443; 84484; 85025; 85610; 87070; 87400; 87430; 93005; 93306; 93880; J2405; J7040